=== PATIENT | male | born 1950 | race Caucasian/White ===

== ENCOUNTER 2016-05-20 06:49 | Inpatient (IN) | payer OTHER ==
[~2016-05-20] VITALS: Ht 162.6 cm; Wt 61.7 kg
[~2016-05-20 06:49] MED LIST: ALDACTONE50 M1 PO; LASIX20 M1 PO; PROTONIX20 MG PO
[2016-05-20 06:56] VITALS: BP 99/64
--- NOTE | 2016-05-20 06:56 | NUR ---
PT TAKEN TO BED 3
--- NOTE | 2016-05-20 07:02 | NUR ---
PT DENIES ALLERGIES TO DEPAKOTE AND LITHIUM AT THE MOMENT
--- NOTE | 2016-05-20 07:07 | NUR ---
PT CAME TO ER W/ C/O BLOODY STOOL X 2 WEEKS. EGD AND COLONOSCOPY DONE AT [facility] 05/11/15;DX: HX ESOPHOGEAL VARACIES CIRRHOSIS;PT HAS FIRM DISTENDED ABDOMEN;PT STATES HE HAS ABDOMINAL PAIN AND FEELING NAUSEOUS W/ PAIN SCALE OF 6/10.PT IS AAOX4;NO ACUTE DISTRESS NOTED AT THIS TIME;SAFETY PRECAUTION INSTITUTED;NEEDS ATTENDED;DR HOWARD AT BEDSIDE.
--- NOTE | 2016-05-20 07:09 | NUR ---
Dr. Vazquez evaluating patient at bedside.
[2016-05-20] MEDS ORDERED: NACL 0.9% 1,000 ML IV SCH (07:16)
--- NOTE | 2016-05-20 07:42 | NUR ---
HEAD ORTHOPEDIC TEAM PHYSICIAN AT BEDSIDE AT THIS TIME.
--- NOTE | 2016-05-20 08:01 | NUR ---
PT LYING ON BED COMFORTABLY;NO ACUTE DISTRESS NOTED AT THIS TIME;WILL CONTINUE TO MONITOR PT.
[2016-05-20] MEDS ORDERED: HYDROcodone/APAP 5/325 MG 1 TAB TAB PO PRN (08:35)
[2016-05-20] MEDS ORDERED: ONDANSETRON 4 MG/2 ML VIAL IVP PRN (08:35)
[2016-05-20] MEDS ORDERED: MORPHINE SULFATE 2 MG/ML SYR IVP PRN (08:35)
[2016-05-20] MEDS ORDERED: DOCUSATE SODIUM 100 MG GELCAP PO PRN (08:35)
[2016-05-20] MEDS ORDERED: ACETAMINOPHEN 325 MG TAB PO PRN (08:35)
[2016-05-20] MEDS ORDERED: NACL 0.9% 1,000 ML IV ONE (08:40)
--- NOTE | 2016-05-20 09:09 | NUR ---
CALLED TELE TO GIVE REPORT .TALKED NICOLE TIAN.JAYLAN SAID THEY WILL CALL BACK BECAUSE THEY WERE NOT INFORM THAT THEY ARE GOING TO RECIEVE PT.
--- NOTE | 2016-05-20 09:21 | NUR ---
REPORT GIVEN TO NICOLE TIAN.
--- NOTE | 2016-05-20 09:23 | NUR ---
Patient will be admitted to care of DR JETER . Admited to TELE. Will go to room 107 B. Belongings list completed. Report to NICOLE TIAN.
[2016-05-20 09:50] VITALS: BP 116/64
--- NOTE | 2016-05-20 09:50 | NUR ---
PT ADMITTED FROM ER TO TELE WITH DX: RECAL BLEED/ HYPOTENSION. PT AMBULATORY TO BED. DENIES DISCOMFORT. FRISIAN SPEAKING. NO S/S OF ACUTE DISTRESS. IV SITE PATENT AND INTACT. SKIN INTACT. BELONGINGS AT BEDSIDE. MADE AWARE OF HOSPITAL ENVIRONMENT. SAFETY MEASURES ENSURED. CALL LIGHT LEFT WITHIN REACH. WILL CONTINUE TO MONITOR.
[2016-05-20] MEDS ORDERED: PNEUMOCOCCAL VACCINE 23 MCG/0.5 ML VIAL IMVAC SCH (10:10)
[2016-05-20] MEDS ORDERED: INFLUENZA VIRUS VACCINE QUAD 0.5 ML SYR IMVAC SCH (10:10)
[2016-05-20] MEDS: PANTOPRAZOLE 40 MG TABEC PO SCH (10:41)
--- NOTE | 2016-05-20 10:49 | NUR ---
PT RESTING IN BED. NO S/S OF ACUTE DISTRESS.
[2016-05-20 12:00] VITALS: BP 91/52
--- NOTE | 2016-05-20 14:00 | NUR ---
PATIENT HAD U/S AT BEDSIDE. NO S/S OF ACUTE DISTRESS. ALL NEEDS MET.
[2016-05-20 16:00] VITALS: BP 97/55
--- NOTE | 2016-05-20 17:06 | NUR ---
PT RESTING IN BED. NO S/S OF ACUTE DISTRESS. [facility] RECORDS AND [facility] RECORDS ENDORSED TO DR. MEZA, NO NEW ORDERS. CALL LIGHT WITHIN REACH. WILL CONTINUE TO MONITOR.
--- NOTE | 2016-05-20 19:10 | NUR ---
ENDORSED PLAN OF CARE TO RN SARAH AT PT BEDSIDE. NO S/S OF ACUTE DISTRESS. SCDS ON PATIENT. CALL LIGHT WITHIN REACH.
--- NOTE | 2016-05-20 19:26 | NUR ---
RECEIVED FROM AM RN IN BED AWAKE AND ALERT. NO SOB. DENIES ANY PAIN AT THIS TIME. PT. CALL LIGHT WITH IN REACH. WATCHING TV AT THIS TIME. PT. IS ORIENTED X 4. DX. OF RECTAL BLEED. ENCOURAGED TO CALL FOR ANY HELP HE MAY NEED OR IF IN PAIN. TELEMETRY MONITORING. ORIENTED TO ROOM AND CALL LIGHT. IVF SITE TO LAC #22 INTACT AND NO INFILTRATION NOTED.
[2016-05-20 20:12] VITALS: BP 75/42
[2016-05-20] MEDS: SHARK OIL/PHENYLEPHRINE/COCOA 1 SUPP RC SCH (21:27)
--- NOTE | 2016-05-20 22:00 | NUR ---
PT. STILL AWAKE AND WATCHING TV. ALBANIAN SPEAKING. USES CALL LIGHT FOR HELP. NO COMPLAINTS DONE.
[2016-05-21 00:43] VITALS: BP 90/50
--- NOTE | 2016-05-21 01:26 | NUR ---
KEPT CLEAN AND DRY.SLEEPING AT THIS TIME. NO SOB. CALL LIGHT WITH IN REACH. NO RESTLESSNESS NOTED.
--- NOTE | 2016-05-21 02:21 | NUR ---
SLEEPING. NO RESTLESSNESS. TELEMETRY MONITORING. CALL LIGHT WITH IN REACH.
[2016-05-21 04:00] VITALS: BP 82/46
--- NOTE | 2016-05-21 04:00 | NUR ---
PT. AM HYGIENE RENDERED. WAKES UP EASILY WHEN TOUCHED. NO SOB. DENIES ANY DOLOR AT THIS TIME. NO COMPLAINTS DONE. AWAKE AND ALERT. TELEMETRY MONITORING. NO ECTOPY NOTED 60 HR. AFEBRILE. CALL LIGHT WITH IN REACH. USES URINAL TO URINATE.
--- NOTE | 2016-05-21 05:57 | NUR ---
PAGED PATCHER WOOD WELDER FOR RAKESH WHIPPLE WHICH IS MD BROWN. WILL RELAY BP OF 85/52.
--- NOTE | 2016-05-21 06:23 | NUR ---
MD BROWN CALLED BACK AND STATED THAT WE WILL WAIT FOR AM HEMOGLOBIN RESULT AND LET THE AM RESIDENTS TAKE CARE OF IT. MADE CHARGE NURSE AWARE.PT. ABLE TO VERBLIZE NEEDS IN DIVEHI. NO COMPLAINTS DONE.
--- NOTE | 2016-05-21 07:30 | NUR ---
RECEIVED REPORT FROM COMMERCIAL REPRESENTATIVE NURSE. PT IS AAOX4, DENIES PAIN/DISCOMFORT AT THIS TIME. SKIN IS DRY AND INTACT. IV IS PATENT AND INTACT. PT IS ON ROOM AIR, VITALS STABLE. CALL LIGHT WITHIN REACH. WILL CONTINUE TO MONITOR.
[2016-05-21 08:00] VITALS: BP 93/59
--- NOTE | 2016-05-21 08:19 | NUR ---
PATIENT HAS BEEN SCREENED AND CATEGORIZED MODERATE NUTRITION RISK. PATIENT WILL BE SEEN WITHIN 3-5 DAYS OF ADMISSION. 05/23/16-05/25/[address]
--- NOTE | 2016-05-21 08:37 | NUR ---
PT MIRLANDE MEDS WELL.
[2016-05-21] MEDS: FUROSEMIDE 20 MG TAB PO SCH (09:00)
[2016-05-21] MEDS: SPIRONOLACTONE 50 MG TAB PO SCH (09:00)
[2016-05-21] MEDS: PANTOPRAZOLE 40 MG TABEC PO SCH (09:05)
[2016-05-21] MEDS: FERROUS SULFATE 325 MG TABEC PO SCH (09:05)
--- NOTE | 2016-05-21 09:07 | NUR ---
PT MIRLANDE MEDS WELL. MEDS NOT GIVEN DUE TO DECREASED BP.
--- NOTE | 2016-05-21 10:02 | NUR ---
CM NOTE INITIAL REVIEW FAXED TO [facility] / FAX# [phone], ATTN: PAULA #[phone]
--- NOTE | 2016-05-21 11:33 | NUR ---
VITAL SIGNS REMAIN STABLE. WILL CONTINUE TO MONITOR.
[2016-05-21 12:00] VITALS: BP 97/57
--- NOTE | 2016-05-21 13:06 | NUR ---
ALL NEEDS MET AT THIS TIME.
--- NOTE | 2016-05-21 14:22 | NUR ---
PT C/O RECTAL BLEED, WITH MILD ABD CRAMPING. MD INFORMED. WILL CONTINUE TO MONITOR.
[2016-05-21 16:00] VITALS: BP 91/58
--- NOTE | 2016-05-21 16:54 | NUR ---
VITALS REMAIN STABLE, NO S/SX OF DISTRESS NOTED.
--- NOTE | 2016-05-21 17:06 | NUR ---
ALL NEEDS MET AT THIS TIME.
--- NOTE | 2016-05-21 19:30 | NUR ---
RECEIVED FROM AM RN IN BED AWAKE AND ALERT. ABLE TO VERBALIZE NEEDS WELL. NO SOB. NO COMPLAINTS OF PAIN DONE AT THIS TIME . CALL LIGHT WITH IN REACH. NO SOB. WATCHING TV AT THIS TIME. WELSH SPEAKING.
[2016-05-21 19:41] VITALS: BP 97/60
[2016-05-21] MEDS: SHARK OIL/PHENYLEPHRINE/COCOA 1 SUPP RC SCH (21:00)
--- NOTE | 2016-05-21 22:40 | NUR ---
STILL AWAKE AND WATCHING TV. NO COMPLAINTS DONE. CALL LIGHT WITH IN REACH. TELEMETRY MONITORING. NO SOB.
[2016-05-22 00:51] VITALS: BP 90/60
--- NOTE | 2016-05-22 01:03 | NUR ---
SLEEPING. NO RESTLESSNESS NOTED. TELEMETRY MONITORING. FLACC 0-
[2016-05-22 04:00] VITALS: BP 89/60
--- NOTE | 2016-05-22 04:06 | NUR ---
SLEEPING. NO COMPLAINTS DONE THIS SHIFT. CALL LIGHT WITH IN REACH.
--- NOTE | 2016-05-22 05:51 | NUR ---
AWAKE AT THIS TIME. PT. WATCHING TV. NO COMPLAINTS DONE. GOES BRP BY HIMSELF. INDEPENDENT. NO COMPLAINTS OF RECTAL BLEED WITH ME FROM START OF SHIFT. DENIES PAIN . TELEMETRY MONITORING.
--- NOTE | 2016-05-22 06:39 | NUR ---
UA SPECIMEN TO SENT TO LABORATORY FOR UA DS.
--- NOTE | 2016-05-22 07:24 | NUR ---
ENDORSED TO THE AM RN FOR CONTINUITY OF CARE.
[2016-05-22] MEDS ORDERED: SODIUM POLYSTYRENE 15 GM/60 ML UDBTL PO SCH (07:27)
[2016-05-22] MEDS ORDERED: LACTULOSE 20 GM/30 ML UDC PO SCH (07:27)
--- NOTE | 2016-05-22 07:27 | NUR ---
RECEIVED REPORT FROM NIGHT RN. PT RESTING IN BED. AAOX4. NO S/S OF ACUTE DISTRESS. PT DENIES PAIN. IV SITE PATENT AND INTACT. CALL LIGHT WITHIN REACH. SAFETY MEASURES ENSURED. WILL CONTINUE TO MONITOR.
[2016-05-22 08:12] VITALS: BP 96/55
[2016-05-22] MEDS: PANTOPRAZOLE 40 MG TABEC PO SCH (08:42)
[2016-05-22] MEDS: FERROUS SULFATE 325 MG TABEC PO SCH (08:42)
[2016-05-22] MEDS: FUROSEMIDE 20 MG TAB PO SCH (08:43)
[2016-05-22] MEDS: SPIRONOLACTONE 50 MG TAB PO SCH (08:43)
[2016-05-22] MEDS ORDERED: PHENYLEPHRINE 0.25% 1 EA SUPP RC PRN (10:00)
--- NOTE | 2016-05-22 10:02 | NUR ---
PT RESTING IN BED. NO S/S OF ACUTE DISTRESS. PT TOLERATED AM MEDS WELL. CALL LIGHT WITHIN REACH. SAFETY MEASURES ENSURED. WILL CONTINUE TO MONITOR.
--- NOTE | 2016-05-22 12:02 | NUR ---
CM NOTE CONCURRENT REVIEW SENT TO [facility] FAX# [phone] PH# [phone] PAULA EXT [phone]
--- NOTE | 2016-05-22 12:59 | NUR ---
PT RESTING IN BED. NO S/S OF ACUTE DISTRESS. PT DENIES PAIN. CALL LIGHT WITHIN REACH. WILL CONTINUE TO MONITOR.
[2016-05-22 13:14] VITALS: BP 96/55
[2016-05-22] MEDS ORDERED: LASIX20 MG PO (13:34)
[2016-05-22] MEDS ORDERED: ALDACTONE50 MG PO (13:34)
--- NOTE | 2016-05-22 14:00 | NUR ---
PT RESTING IN BED. NO S/S OF ACUTE DISTRESS. PT DENIES PAIN. CALL LIGHT WITHIN REACH. SAFETY MEASURES ENSURED. WILL CONTINUE TO MONITOR.
[2016-05-22] MEDS ORDERED: HEMORRHOIDAL S RC (15:11)
--- NOTE | 2016-05-22 15:58 | NUR ---
PT CLEARED FOR DISCHARGE. PT DISCHARGE TEACHING PROVIDED. PT VERBALIZED UNDERSTANDING. NO S/S OF ACUTE DISTRESS. PT REMAINS IN STABLE CONDITION.
[2016-05-22 16:00] VITALS: BP 101/65
--- NOTE | 2016-05-22 17:01 | NUR ---
PT'S DAUGHTER HERE. PT'S IV TAKEN OUT. NO S/S OF ACUTE DISTRESS. PT DENIES PAIN. PT REMAINS IN STABLE CONDITION. PT TAKEN OFF UNIT.
== END 2016-05-22 17:01 | disposition home or self-care (01) | DRG 377 ==
LOC: MED 06:49 → MTU 08:47
PROVIDERS: ADMIT Family Medicine; ATTEND Family Medicine
DX: K92.2 Gastrointestinal hemorrhage, unspecified (principal); N17.0 Acute kidney failure with tubular necrosis; K76.7 Hepatorenal syndrome; D62 Acute posthemorrhagic anemia; D61.818 Other pancytopenia; K76.6 Portal hypertension; E44.0 Moderate protein-calorie malnutrition; K64.8 Other hemorrhoids; I85.00 Esophageal varices without bleeding; B19.20 Unspecified viral hepatitis C without hepatic coma; E83.51 Hypocalcemia; E78.5 Hyperlipidemia, unspecified; I95.9 Hypotension, unspecified; D63.8 Anemia in other chronic diseases classified elsewhere; K70.31 Alcoholic cirrhosis of liver with ascites; N18.9 Chronic kidney disease, unspecified; E87.5 Hyperkalemia; Z88.8 Allergy status to other drugs, medicaments and biological substances; Z79.899 Other long term (current) drug therapy; Z68.23 Body mass index [BMI] 23.0-23.9, adult

== ENCOUNTER 2016-08-10 06:35 | Inpatient (IN) | payer MEDICARE, OTHER ==
[~2016-08-10] VITALS: Ht 162.6 cm; Wt 60.8 kg
[~2016-08-10 06:35] MED LIST changes: -ALDACTONE50 M1 PO; +FURO-572 PO; -LASIX20 M1 PO; +PANT20EC PO; -PROTONIX20 MG PO; +SPIR50TA PO; +[UNRECOGNIZED DRUG - OTHER] RC
[2016-08-10 06:55] VITALS: BP 115/56
--- NOTE | 2016-08-10 07:02 | NUR ---
PT TAKEN TO BED 5
[2016-08-10 07:41] LABS: BASOPHILS % (AUTO) 1.3 % (0.0-2.0); EOSINOPHILS # (AUTO) 0.1 K/uL (0-0.4); EOSINOPHILS % (AUTO) 3.7 % (0.0-4.0); HEMATOCRIT 36.4 % (36-52); HEMOGLOBIN 11.9 g/dL (12.0-18.0); LYMPHOCYTES # (AUTO) 0.3 K/uL (2.0-11.5); MEAN CORPUSCULAR HEMOGLOBIN 29 pg (27-31); MEAN CORPUSCULAR HGB CONC 33 g/dL (33-37); MEAN CORPUSCULAR VOLUME 88 fL (80-94); MONOCYTES # (AUTO) 0.3 K/uL (0.8-1.0); MONOCYTES % (AUTO) 8.5 % (1.7-9.3); NEUTROPHILS % (AUTO) 78.5 % (42.2-75.2); RED BLOOD CELL COUNT(AUTO) 4.12 MIL/uL (4.20-6.10); RED CELL DISTRIBUTION WIDTH 17.4 % (11.6-13.7)
[2016-08-10 07:44] LABS: ANION GAP 12.8 (8-16); CALCIUM 8.6 mg/dL (8.5-10.1); CARBON DIOXIDE 27.2 mmol/L (21-32); CREATININE 1.7 mg/dL (0.6-1.3)
[2016-08-10 07:50] LABS: ALBUMIN 3.2 g/dL (3.4-5.0); TOTAL BILIRUBIN 0.7 mg/dL (0.0-1.0); TOTAL PROTEIN, SERUM 7.2 g/dL (6.4-8.2)
[2016-08-10] MEDS ORDERED: NACL 0.9% 1,000 ML IV ONE (07:50)
--- NOTE | 2016-08-10 07:50 | NUR ---
65/M PRESENT TO ER C/O ABD PAIN, SOB, FOR 3 DAYS NOW. PAIN 8/10 ACHING PRESSURE NON-RADIATING. ABD DISTENDED. PT DENIES N/V/D. AAOx4, PERRLA, BREATHING EVEN AND UNLABORED. ERMD NOTIFIED OF PATIENT STATUS.
--- NOTE | 2016-08-10 07:51 | NUR ---
Patient being evaluated by physician at bedside.
[2016-08-10 07:54] LABS: PLATELET COUNT (AUTO) 40 K/uL (140-450); WHITE BLOOD COUNT (AUTO) 3.7 K/uL (4.8-10.8)
[2016-08-10] MEDS ORDERED: ALBUTEROL 0.083% 2.5 MG/3 ML NEBU INH ONE (08:40)
[2016-08-10] MEDS ORDERED: IPRATROPIUM 0.02% 0.5 MG/2.5 ML NEBU INH ONE (08:40)
[2016-08-10 08:45] LABS: APPEARANCE,URINE CLEAR (CLEAR); BILIRUBIN,URINE NEGATIVE (NEGATIVE); BLOOD, URINE NEGATIVE (NEGATIVE); COLOR,URINE YELLOW (YELLOW); LEUKOCYTE ESTERASE ,URINE NEGATIVE (NEGATIVE); NITRITE, URINE NEGATIVE (NEGATIVE); PH,URINE 5.5 (5.0-9.0); PROTEIN,URINE NEGATIVE (NEGATIVE); UGLUCOSE NEGATIVE (NEGATIVE); UROBILINOGEN,URINE 0.2 EU/dL (0.2 - 1)
[2016-08-10 09:01] LABS: INR 1.4 (0.8-1.2); PARTIAL THROMBOPLASTIN TIME 34.5 secs (22-35.6); PROTHROMBIN TIME 12.9 secs (10.8-13.4)
--- NOTE | 2016-08-10 10:34 | NUR ---
PT RESTING. VSS. ERMD AWARE OF PATIENT STATUS.
--- NOTE | 2016-08-10 11:20 | NUR ---
PT TAKEN TO RADIOLOGY VIA GURNEY BY [facility].
--- NOTE | 2016-08-10 11:31 | NUR ---
PT RETURNED FROM CT VIA GURROLFE BY [facility].
--- NOTE | 2016-08-10 12:35 | NUR ---
PT RESTING. VSS. ERMD AWARE OF PATIENT STATUS.
[2016-08-10 12:53] LABS: ANION GAP 13.6 (8-16); CALCIUM 8.4 mg/dL (8.5-10.1); CARBON DIOXIDE 24.6 mmol/L (21-32); CREATININE 1.6 mg/dL (0.6-1.3); POTASSIUM 4.2 mmol/L (3.5-5.1)
--- NOTE | 2016-08-10 13:06 | NUR ---
Patient will be admitted to care of DR. HERRING. Admited to TELE. Will go to room 106B. Belongings list completed. Report to NICOLE JENKINS.
[2016-08-10] MEDS ORDERED: NACL 0.9% 1,000 ML IV SCH (13:37)
[2016-08-10] MEDS ORDERED: ACETAMINOPHEN 325 MG TAB PO PRN (13:40)
[2016-08-10] MEDS ORDERED: HYDROcodone/APAP 7.5/325 MG 1 TAB PO PRN (13:40)
[2016-08-10] MEDS ORDERED: ONDANSETRON 4 MG/2 ML VIAL IVP PRN (13:40)
[2016-08-10 14:30] VITALS: BP 109/68
[2016-08-10 15:14] LABS: CHOL/HDL RATIO 3.9 (1-4.5); MAGNESIUM 1.8 mg/dL (1.8-2.4); PHOSPHORUS 3.6 mg/dL (2.5-4.9)
[2016-08-10 15:16] LABS: LACTIC ACID 1.7 mmol/L (0.4-2.0)
--- NOTE | 2016-08-10 15:20 | NUR ---
PT BROUGHT UP FROM ER AT 1430, PT AAOX4, RESP EVEN UNLABORED ON ROOM AIR IN NAD, AMBULATES TO BED WITHOUT PROBLEM WITH STEADY GAIT, VSS, INITIAL ASSESSMENT DONE AND ADMISSION QUESTIONS DONE VIA TELEPHONE RAIL LAYER #[phone], PT STATES HE CAME INTO ER TODAY BECAUSE HE NEEDS "LIQUID REMOVED FROM ABDOMEN", REPORTS HAVING FLUID REMOVED ABOUT 8 MONTHS AGO, AND TREATMENT FOR ESOPHAGEAL VARICES IN APR 2016, PT DENIES N/VD, DENIES BLOOD IN STOOL OR BLOODY EMESIS, PT WITH SEVERELY DISTENDED ABD, FIRM TO TOUCH, BS CLEAR BILAT, MOVES ALL EXT X4, SKIN INTACT, PLAN OF CARE DISCUSSED, PT DENIES ANY NEEDS OR QUESTIONS AT THIS TIME, PT ORIENTED TO ROOM AND FLOOR, CALL BOLAND WITHIN REACH, BED LOCKED IN LOW POSITION, WILL CONTINUE TO MONITOR.
[2016-08-10] MEDS ORDERED: ALBUTEROL SULFATE/IPRATROPIU 3 ML SOL IH PRN (15:55)
[2016-08-10 16:00] VITALS: BP 121/63
--- NOTE | 2016-08-10 16:00 | NUR ---
PT UP TO BATHROOM, URINE SAMPLE COLLECTED, SENT TO LAB.
[2016-08-10] MEDS ORDERED: PANTOPRAZOLE 40 MG INJ VIAL IVP SCH (16:10)
[2016-08-10] MEDS ORDERED: FUROSEMIDE 40 MG/4 ML VIAL IVP SCH (16:30)
[2016-08-10 16:55] LABS: FREE T4 (FREE THYROXINE) 0.96 ng/dL (0.76-1.46); THYROID STIMULATING HORMONE 1.12 uIU/mL (0.34-3.76)
[2016-08-10 16:57] LABS: AMPHETAMINE, URINE NEG. ng/ml (NEG <=1000); BARBITURATE, URINE NEG. ng/ml (NEG <=200); BENZODIAZEPINE, URINE NEG. ng/mL (NEG <=200); CANNABINOID, URINE NEG. ng/mL (NEG <=50); COCAINE, URINE NEG. ng/mL (NEG <=300); OPIATE, URINE NEG. ng/mL (NEG <=2000); PHENCYCLIDINE SCREEN,URINE NEG. ng/mL (NEG <=25)
--- NOTE | 2016-08-10 17:05 | NUR ---
US AT BEDSIDE
[2016-08-10] MEDS: ALBUTEROL SULFATE/IPRATROPIU 3 ML SOL IH SCH (19:05)
--- NOTE | 2016-08-10 19:18 | NUR ---
REPORT GIVEN TO EDGER OPERATOR, PT IN STABLE CONDITION.
--- NOTE | 2016-08-10 19:18 | NUR ---
RECEIVED REPORT FROM DAY RN FOR CONTINUITY OF CARE. PATIENT IS A&OX4, DISCUSSED PLAN OF CARE WITH PATIENT, VERBALIZED UNDERSTANDING. SHIFT ASSESSMENT DONE, VS TAKEN, STABLE. NO S/S OF RESPIRATORY DISTRESS NOTED ON ROOM AIR. PATIENT STATES DISCOMFORT TO ABDOMEN, ASCITES NOTED. IV TO LT AC PATENT AND INFUSING FLUIDS TO KEEP OPEN. SAFETY PRECAUTIONS ENFORCED, CALL LIGHT WITHIN REACH. WILL CONTINUE TO MONITOR.
[2016-08-10 20:00] VITALS: BP 124/73
[2016-08-10] MEDS: DOCUSATE SODIUM 100 MG GELCAP PO SCH (21:02)
--- NOTE | 2016-08-10 21:02 | NUR ---
DUE MEDICATIONS ADMINISTERED, TOLERATED WELL. CALL LIGHT WITHIN REACH. WILL CONTINUE TO MONITOR.
--- NOTE | 2016-08-10 22:00 | NUR ---
PATIENT AMBULATED TO RESTROOM, HAD A BOWEL MOVEMENT, RETURNED TO BED AND MADE COMFORTABLE. CALL LIGHT WITHIN REACH.
--- NOTE | 2016-08-10 23:51 | NUR ---
VS TAKEN, STABLE. PT NOW SLEEPING AT THIS TIME. CALL LIGHT WITHIN REACH.
[2016-08-11] VITALS: BP 109/56
--- NOTE | 2016-08-11 02:13 | NUR ---
PATIENT SLEEPING AT THIS TIME. NO S/S OF DISTRESS OR DISCOMFORT NOTED. CALL LIGHT IN REACH.
[2016-08-11 04:00] VITALS: BP 111/63
--- NOTE | 2016-08-11 04:18 | NUR ---
VS TAKEN, STABLE. PATIENT RESTING IN BED WATCHING TV. SAFETY MEASURES ENFORCED, EMPTIED URINAL. CALL LIGHT WITHIN REACH.
--- NOTE | 2016-08-11 06:19 | NUR ---
PATIENT IS RESTING AT THIS TIME. NO S/S OF DISTRESS OR DISCOMFORT NOTED. WILL CONTINUE TO MONITOR.
--- NOTE | 2016-08-11 07:14 | NUR ---
ENDORSED PATIENT TO DAY RN FOR CONTINUITY OF CARE, PATIENT IS IN STABLE CONDITION.
--- NOTE | 2016-08-11 07:15 | NUR ---
PT AWAKE AND ALERT, NO SIGNS OF ACUTE DISTRESS. BREATHING EVEN AND UNLABORED BILATERALLY, PT ON ROOM AIR. BOWEL SOUNDS ACTIVE IN ALL 4 QUADRANTS, ABDOMEN ROUND AND ASCITIC, WITH COMPLAINT OF PAIN 6/10 IN STOMACH. SKIN INTACT. AMBULATORY WITH BRP. BOWEL AND BLADDER CONTINENT, USES URINAL. TURKISH PRIMARY LANGUAGE. BED IN LOW POSITION WITH BILATERAL HALF SIDE RAILS UP, CALL LIGHT WITHIN REACH. REORIENTED TO UNIT AND HOSPITAL, PT VERBALIZED UNDERSTANDING.
[2016-08-11] MEDS: ALBUTEROL SULFATE/IPRATROPIU 3 ML SOL IH SCH ×3 (07:18→20:00)
[2016-08-11 07:52] VITALS: BP 103/65
[2016-08-11] MEDS: PANTOPRAZOLE 40 MG INJ VIAL IVP SCH (08:51)
[2016-08-11] MEDS: FUROSEMIDE 40 MG/4 ML VIAL IVP SCH (08:51)
[2016-08-11] MEDS: SPIRONOLACTONE 50 MG TAB PO SCH (08:51)
[2016-08-11] MEDS: DOCUSATE SODIUM 100 MG GELCAP PO SCH ×2 (08:51→20:40)
[2016-08-11] MEDS: PROPRANOLOL 20 MG TAB PO SCH ×2 (08:52→20:40)
--- NOTE | 2016-08-11 10:04 | NUR ---
PATIENT HAS BEEN SCREENED AND CATEGORIZED MODERATE NUTRITION RISK. PATIENT WILL BE SEEN WITHIN 3-5 DAYS OF ADMISSION. 08/13/16-08/15/[address]
[2016-08-11 12:00] VITALS: BP 107/61
--- NOTE | 2016-08-11 12:01 | NUR ---
CM NOTE INITIAL REVIEW SENT TO [facility] FAX# [phone] DEIDRE PH# [phone]
--- NOTE | 2016-08-11 14:43 | NUR ---
RECEIVED NEW LAB ORDERS FROM DR MENCHACA, NOTED AND WILL CARRY OUT.
[2016-08-11 15:25] LABS: BASOPHILS # (AUTO) 0.1 K/uL (0.00-0.22); BASOPHILS % (AUTO) 1.2 % (0.0-2.0); EOSINOPHILS # (AUTO) 0.1 K/uL (0-0.4); EOSINOPHILS % (AUTO) 2.8 % (0.0-4.0); HEMATOCRIT 37.5 % (36-52); HEMOGLOBIN 12.4 g/dL (12.0-18.0); LYMPHOCYTES # (AUTO) 0.3 K/uL (2.0-11.5); LYMPHOCYTES % (AUTO) 7.5 % (20.5-51.1); MEAN CORPUSCULAR HEMOGLOBIN 30 pg (27-31); MEAN CORPUSCULAR HGB CONC 33 g/dL (33-37); MEAN CORPUSCULAR VOLUME 90 fL (80-94); MONOCYTES # (AUTO) 0.3 K/uL (0.8-1.0); MONOCYTES % (AUTO) 7.9 % (1.7-9.3); NEUTROPHILS # (AUTO) 3.6 K/uL (1.8-7.7); NEUTROPHILS % (AUTO) 80.6 % (42.2-75.2); PLATELET COUNT (AUTO) 31 K/uL (140-450); RED BLOOD CELL COUNT(AUTO) 4.17 MIL/uL (4.20-6.10); RED CELL DISTRIBUTION WIDTH 17.4 % (11.6-13.7); WHITE BLOOD COUNT (AUTO) 4.4 K/uL (4.8-10.8)
[2016-08-11 15:37] LABS: ANION GAP 14.7 (8-16); CALCIUM 9.2 mg/dL (8.5-10.1); CARBON DIOXIDE 27.3 mmol/L (21-32)
[2016-08-11 15:38] LABS: MAGNESIUM 1.9 mg/dL (1.8-2.4); PHOSPHORUS 3.9 mg/dL (2.5-4.9)
[2016-08-11 16:00] VITALS: BP 95/57
--- NOTE | 2016-08-11 19:30 | NUR ---
RECEIVED REPORT FROM DAY RN AT BEDSIDE, PATIENT IS AAOX4 RESTING IN BED, ON ROOM AIR, NO SOB OR SIGN OF DISTRESS AT THIS TIME. IV TO LAC PATENT AND INTACT, PATIENT STATED HE HAS LITTLE ABDOMINAL PAIN BUT DOES NOT WANT PAIN MEDS, ABDOMEN IN ROUND AND DISTENDED, SKIN INTACT. DISCUSSED PLAN OF CARE WITH PATIENT, PATIENT VERBALIZED UNDERSTANDING, SAFETY MEASURES CHECKED, CALL LIGHT WITHIN REACH. WILL CONTINUE TO MONITOR.
[2016-08-11 20:00] VITALS: BP 114/67
--- NOTE | 2016-08-11 20:48 | NUR ---
PM MEDS ADMINISTERED, PATIENT TOLERATED WELL, PATIENT RESTING IN BED COMFORTABLE, WILL CONTINUE TO MONITOR.
--- NOTE | 2016-08-11 22:30 | NUR ---
PATIENT SLEEPING, NO SIGN OF DISTRESS AT THIS TIME, CALL LIGHT WITHIN REACH. WILL CONTINUE TO MONITOR.
[2016-08-12] VITALS: BP 93/53
--- NOTE | 2016-08-12 | NUR ---
VITAL SIGNS STABLE, NO SIGN OF DISTRESS, CALL LIGHT WITHIN REACH. WILL CONTINUE TO MONITOR
--- NOTE | 2016-08-12 02:16 | NUR ---
PATIENT SLEEPING, NO SIGN OF DISTRESS, CALL LIGHT WITHIN REACH. WILL CONTINUE TO MONITOR.
[2016-08-12 04:00] VITALS: BP 95/63
--- NOTE | 2016-08-12 04:00 | NUR ---
VITAL SIGNS STABLE, NO SOB OR SIGN OF DISTRESS, CALL LIGHT WITHIN REACH. WILL CONTINUE TO MONITOR
[2016-08-12] MEDS: ALBUTEROL SULFATE/IPRATROPIU 3 ML SOL IH SCH ×2 (07:02→12:21)
[2016-08-12 07:07] LABS: BASOPHILS % (AUTO) 1.1 % (0.0-2.0); EOSINOPHILS # (AUTO) 0.1 K/uL (0-0.4); EOSINOPHILS % (AUTO) 3.9 % (0.0-4.0); HEMATOCRIT 35.8 % (36-52); HEMOGLOBIN 11.8 g/dL (12.0-18.0); LYMPHOCYTES # (AUTO) 0.4 K/uL (2.0-11.5); LYMPHOCYTES % (AUTO) 11.1 % (20.5-51.1); MEAN CORPUSCULAR HEMOGLOBIN 29 pg (27-31); MEAN CORPUSCULAR HGB CONC 33 g/dL (33-37); MEAN CORPUSCULAR VOLUME 88 fL (80-94); MONOCYTES # (AUTO) 0.4 K/uL (0.8-1.0); NEUTROPHILS # (AUTO) 2.9 K/uL (1.8-7.7); NEUTROPHILS % (AUTO) 72.9 % (42.2-75.2); PLATELET COUNT (AUTO) 30 K/uL (140-450); RED BLOOD CELL COUNT(AUTO) 4.05 MIL/uL (4.20-6.10); RED CELL DISTRIBUTION WIDTH 16.9 % (11.6-13.7); WHITE BLOOD COUNT (AUTO) 3.8 K/uL (4.8-10.8)
--- NOTE | 2016-08-12 07:19 | NUR ---
ENDORSED PATIENT TO DAY RN AT BEDSIDE, PATIENT IN STABLE CONDITION
--- NOTE | 2016-08-12 07:20 | NUR ---
RECEIVED REPORT FROM NICOLE MCKINNEY. PT IS RESTING IN BED AT THIS TIME, A/OX4, AMBULATES ON HIS OWN, IV IS ON THE LT AC, PATENT, INTACT, FLUSHING WELL, SKIN IS INTACT, ASCITES NOTED, PT ABDOMEN IS ROUND, LARGE, FIRM, NO S/S OF RESPIRATORY DISTRESS OR DISCOMFORT NOTED, SAFETY/FALL PRECAUTIONS ARE IN PLACE, DISCUSSED PLAN OF CARE WITH PT, PT VERBALIZED UNDERSTANDING, CALL LIGHT WITHIN REACH, WILL CONTINUE TO MONITOR.
[2016-08-12 07:24] LABS: ANION GAP 14.7 (8-16); CALCIUM 8.4 mg/dL (8.5-10.1); CARBON DIOXIDE 25.5 mmol/L (21-32); CREATININE 1.7 mg/dL (0.6-1.3); POTASSIUM 4.2 mmol/L (3.5-5.1)
[2016-08-12 07:30] LABS: PHOSPHORUS 3.9 mg/dL (2.5-4.9)
[2016-08-12 08:00] VITALS: BP 112/63
[2016-08-12] MEDS: FUROSEMIDE 40 MG/4 ML VIAL IVP SCH (08:49)
[2016-08-12] MEDS: PANTOPRAZOLE 40 MG INJ VIAL IVP SCH (08:49)
[2016-08-12] MEDS: DOCUSATE SODIUM 100 MG GELCAP PO SCH (08:49)
[2016-08-12] MEDS: PROPRANOLOL 20 MG TAB PO SCH ×2 (08:50→13:00)
--- NOTE | 2016-08-12 08:50 | NUR ---
DUE MEDICATIONS GIVEN, PT TOLERATED WELL, CALL LIGHT IS WITHIN REACH, WILL CONTINUE TO MONITOR.
[2016-08-12] MEDS: SPIRONOLACTONE 50 MG TAB PO SCH (08:51)
--- NOTE | 2016-08-12 10:45 | NUR ---
PT IS SITTING IN BED, WATCHING TV, FAMILY IS AT BEDSIDE, CALL LIGHT WITHIN REACH.
[2016-08-12 12:00] VITALS: BP 103/65
--- NOTE | 2016-08-12 12:10 | NUR ---
CM SILVA RECEIVED A CALL FROM SHYANNE PERKINS OF [facility] AND SHE SAID SHE IS THE NEW [facility] CM CONTACT. CONCURRENT REVIEW SENT TO [facility] FAX# [phone] MADDIE PH# [phone]
--- NOTE | 2016-08-12 12:45 | NUR ---
PT RESTING IN BED AT THIS TIME, FAMILY IS AT BEDSIDE.
--- NOTE | 2016-08-12 14:15 | NUR ---
DR. MENCHACA AND DR. FIERRO ARE AT PATIENT'S BEDSIDE, PREPARING PATIENT FOR PARACENTESES.
--- NOTE | 2016-08-12 14:45 | NUR ---
PARACENTESES COMPLETED, PT TOLERATED WELL, TOTAL OF 2.2 LITERS OF FLUID REMOVED.
--- NOTE | 2016-08-12 15:40 | NUR ---
ASSISTED PT TO RESTROOM AND BACK INTO BED, NO S/S OF RESPIRATORY DISTRESS OR DISCOMFORT NOTED, CALL LIGHT WITHIN REACH WILL CONTINUE TO MONITOR.
[2016-08-12 16:00] VITALS: BP 114/63
[2016-08-12 16:18] LABS: APPEARANCE,SPUN,BODY FLUID HAZY (CLEAR); APPEARANCE,UNSPUN,BODY FLUID SLIGHTLY CLOUDY (CLEAR); COLOR,BODY FLUID YELLOW (LT YELLOW); SPECIMENTYPE,BODY FLUID PARACENTESIS; TOTAL VOLUME,BODY FLUID 2000 mL
[2016-08-12 16:32] LABS: GLUCOSE,BODY FLUID 124 mg/dL; PROTEIN, BODY FLUID 1.1 g/dL
--- NOTE | 2016-08-12 16:35 | NUR ---
WENT OVER DC INSTRUCTIONS W/ PT AND SON. ANSWERED ALL QUESTIONS. VERBALIZED UNDERSTANDING. SIGNED APPROPRIATE PAPERWORK. REMOVED IV, CANNULA INTACT. NO BLEEDING NOTED. REMOVED ALL ARM BANDS. PT HAS ALL HIS PERSONAL BELONGINGS IN BAGS, READY TO GO. WHEELED HIM OUT WITH HIS SON AT HIS SIDE.
[2016-08-12 19:27] LABS: RBC, BODY FLUID 505 /cu. mm.; WBC, BODY FLUID 36 /cu. mm.
[2016-08-12 19:28] LABS: MONONUCLEAR, BODY FLUID 64 %; POLYNUCLEAR, BODY FLUID 36 %
== END 2016-08-12 16:30 | disposition home or self-care (01) | DRG 432 ==
LOC: MED 06:35 → MTU 13:37
PROVIDERS: ADMIT Family Medicine; ATTEND Family Medicine
PROC: 0W9G3ZZ Drainage of Peritoneal Cavity, Percutaneous Approach (ICD-10-PCS; principal; 2016-08-12)
DX: K74.60 Unspecified cirrhosis of liver (principal); N17.0 Acute kidney failure with tubular necrosis; D61.818 Other pancytopenia; E44.0 Moderate protein-calorie malnutrition; R18.8 Other ascites; K76.6 Portal hypertension; B19.20 Unspecified viral hepatitis C without hepatic coma; F10.21 Alcohol dependence, in remission; Z60.2 Problems related to living alone; Z88.6 Allergy status to analgesic agent; Z88.8 Allergy status to other drugs, medicaments and biological substances; Z79.899 Other long term (current) drug therapy; Z68.23 Body mass index [BMI] 23.0-23.9, adult; Z71.3 Dietary counseling and surveillance; Z82.49 Family history of ischemic heart disease and other diseases of the circulatory system
CPT/HCPCS: 36415; 49083; 71010; 76604; 76705; 80048; 80053; 80305; 81003; 82140; 82150; 82553; 82945; 83036; 83605; 83690; 83735; 83880; 84100; 84157; 84439; 84443; 84484; 85025; 85379; 85610; 85730; 87040; 87081; 89051; 93005; 94640; 96360; 99285; C9113; J1940; J2001; J7030; J7613; J7620; J7644; Q0092; Q9967

== ENCOUNTER 2016-11-25 06:53 | Inpatient (IN) | payer MEDICARE, OTHER ==
[~2016-11-25] VITALS: Ht 170.2 cm; Wt 63.5 kg
[2016-11-25 07:00] VITALS: BP 102/60
[2016-11-25] MEDS ORDERED: BEN50 PO (07:09)
[2016-11-25] MEDS ORDERED: LORA10TA19 PO (07:09)
[2016-11-25] MEDS ORDERED: ONDANSETRON 4 MG/2 ML VIAL IVP ONE (07:25)
[2016-11-25 07:33] LABS: HEMATOCRIT 38.5 % (36-52); HEMOGLOBIN 12.7 g/dL (12.0-18.0); MEAN CORPUSCULAR HEMOGLOBIN 30 pg (27-31); MEAN CORPUSCULAR HGB CONC 33 g/dL (33-37); MEAN CORPUSCULAR VOLUME 92 fL (80-94); PLATELET COUNT (AUTO) 25 K/uL (140-450); RED BLOOD CELL COUNT(AUTO) 4.19 MIL/uL (4.20-6.10); RED CELL DISTRIBUTION WIDTH 15.8 % (11.6-13.7); WHITE BLOOD COUNT (AUTO) 4.2 K/uL (4.8-10.8)
[2016-11-25 07:46] LABS: PROTHROMBIN TIME 13.8 secs (10.8-13.4)
[2016-11-25 07:49] LABS: ALBUMIN 3.4 g/dL (3.4-5.0); ANION GAP 10.4 (8-16); CARBON DIOXIDE 26.2 mmol/L (21-32); POTASSIUM 3.6 mmol/L (3.5-5.1); TOTAL BILIRUBIN 0.9 mg/dL (0.0-1.0)
[2016-11-25 08:15] LABS: EOSINOPHILS % (MANUAL) 2 % (0-4); LYMPHOCYTES % (MANUAL) 6 % (20-46); MONOCYTES % (MANUAL) 3 % (5-12)
[2016-11-25 08:38] LABS: APPEARANCE,URINE CLEAR (CLEAR); BILIRUBIN,URINE NEGATIVE (NEGATIVE); BLOOD, URINE NEGATIVE (NEGATIVE); COLOR,URINE YELLOW (YELLOW); LEUKOCYTE ESTERASE ,URINE NEGATIVE (NEGATIVE); NITRITE, URINE NEGATIVE (NEGATIVE); PH,URINE 5.5 (5.0-9.0); UGLUCOSE NEGATIVE (NEGATIVE)
[2016-11-25] MEDS ORDERED: NACL 0.9% 250 ML IV ONE (09:35)
[2016-11-25] MEDS ORDERED: ACETAMINOPHEN 325 MG TAB PO PRN (09:40)
[2016-11-25] MEDS ORDERED: ONDANSETRON 4 MG/2 ML VIAL IVP PRN (09:40)
[2016-11-25] MEDS ORDERED: HYDROcodone/APAP 7.5/325 MG 1 TAB PO PRN (09:40)
[2016-11-25 10:00] VITALS: BP 97/61
[2016-11-25 10:40] LABS: CHOL/HDL RATIO 3.5 (1-4.5); FREE T4 (FREE THYROXINE) 0.94 ng/dL (0.76-1.46); MAGNESIUM 2.1 mg/dL (1.8-2.4); PHOSPHORUS 3.5 mg/dL (2.5-4.9); THYROID STIMULATING HORMONE 1.13 uIU/mL (0.34-3.74)
[2016-11-25] MEDS: NACL 0.9% 1,000 ML IV SCH (10:43)
[2016-11-25 12:00] VITALS: BP 93/60
[2016-11-25 12:56] LABS: BARBITURATE, URINE NEG. ng/ml (NEG <=200); BENZODIAZEPINE, URINE NEG. ng/mL (NEG <=200); CANNABINOID, URINE NEG. ng/mL (NEG <=50); COCAINE, URINE NEG. ng/mL (NEG <=300); OPIATE, URINE NEG. ng/mL (NEG <=2000); PHENCYCLIDINE SCREEN,URINE NEG. ng/mL (NEG <=25)
[2016-11-25] MEDS ORDERED: INSULIN LISPRO SLIDING SCALE 100 UNITS/ML VIAL SUBQ PRN (13:40)
[2016-11-25] MEDS ORDERED: DEXTROSE 50% 50 ML SYR IVP PRN (13:40)
[2016-11-25] MEDS: PANTOPRAZOLE 80 MG in NACL 0.9% 100 ML IVP SCH (15:24)
[2016-11-25 16:00] VITALS: BP 95/49
[2016-11-25] MEDS: BLOOD GLUCOSE MONITORING 1 DEV DEV FS SCH ×2 (16:23→21:21)
[2016-11-25 20:00] VITALS: BP 90/49
[2016-11-25] MEDS: DOCUSATE SODIUM 100 MG GELCAP PO SCH (21:15)
[2016-11-26] VITALS (7 sets, daily range): BP systolic 90–121; BP diastolic 47–68
[2016-11-26] MEDS: PANTOPRAZOLE 80 MG in NACL 0.9% 100 ML IVP SCH (02:14)
[2016-11-26] MEDS: NACL 0.9% 1,000 ML IV SCH ×3 (05:37→22:00)
[2016-11-26 06:39] LABS: HEMATOCRIT 38.9 % (36-52); HEMOGLOBIN 12.6 g/dL (12.0-18.0); MEAN CORPUSCULAR HEMOGLOBIN 30 pg (27-31); MEAN CORPUSCULAR HGB CONC 33 g/dL (33-37); MEAN CORPUSCULAR VOLUME 91 fL (80-94); RED BLOOD CELL COUNT(AUTO) 4.26 MIL/uL (4.20-6.10); RED CELL DISTRIBUTION WIDTH 15.3 % (11.6-13.7); WHITE BLOOD COUNT (AUTO) 3.5 K/uL (4.8-10.8)
[2016-11-26 06:46] LABS: ANION GAP 10.1 (8-16); CARBON DIOXIDE 27.7 mmol/L (21-32); CREATININE 1.9 mg/dL (0.7-1.3); POTASSIUM 5.8 mmol/L (3.5-5.1)
[2016-11-26 06:54] LABS: PHOSPHORUS 4.4 mg/dL (2.5-4.9)
[2016-11-26] MEDS: BLOOD GLUCOSE MONITORING 1 DEV DEV FS SCH (07:00)
[2016-11-26 07:39] LABS: PLATELET COUNT (AUTO) 30 K/uL (140-450)
[2016-11-26 07:40] LABS: EOSINOPHILS % (MANUAL) 2 % (0-4); LYMPHOCYTES % (MANUAL) 15 % (20-46); MONOCYTES % (MANUAL) 7 % (5-12)
[2016-11-26] MEDS: PANTOPRAZOLE 40 MG TABEC PO SCH (08:53)
[2016-11-26] MEDS: ATORVASTATIN 20 MG TAB PO SCH (08:53)
[2016-11-26] MEDS: DOCUSATE SODIUM 100 MG GELCAP PO SCH ×2 (08:53→20:04)
[2016-11-26] MEDS ORDERED: PANTOPRAZOLE 40 MG INJ VIAL IVP SCH (09:00)
[2016-11-26] MEDS ORDERED: FUROSEMIDE 20 MG/2 ML VIAL IVP SCH (09:59)
[2016-11-26] MEDS ORDERED: fentaNYL 0.05 MG/ML VIAL ONE (10:28)
[2016-11-26] MEDS ORDERED: MIDAZOLAM 2 MG/2 ML VIAL ONE (10:28)
[2016-11-26] MEDS ORDERED: SODIUM POLYSTYRENE 15 GM/60 ML UDBTL PR SCH (12:30)
[2016-11-26] MEDS ORDERED: fentaNYL 0.05 MG/ML VIAL IVP ONE (13:10)
[2016-11-26] MEDS ORDERED: MIDAZOLAM 2 MG/2 ML VIAL IVP ONE (13:10)
[2016-11-27] VITALS: BP 100/58
[2016-11-27] MEDS: NACL 0.9% 1,000 ML IV SCH ×2 (03:18→08:29)
[2016-11-27 04:00] VITALS: BP 97/53
[2016-11-27 06:08] LABS: BASOPHILS % (AUTO) 1.2 % (0.0-2.0); EOSINOPHILS # (AUTO) 0.1 K/uL (0-0.4); EOSINOPHILS % (AUTO) 3.6 % (0.0-4.0); HEMATOCRIT 35.5 % (36-52); HEMOGLOBIN 11.4 g/dL (12.0-18.0); LYMPHOCYTES # (AUTO) 0.3 K/uL (2.0-11.5); LYMPHOCYTES % (AUTO) 9.5 % (20.5-51.1); MEAN CORPUSCULAR HEMOGLOBIN 29 pg (27-31); MEAN CORPUSCULAR HGB CONC 32 g/dL (33-37); MEAN CORPUSCULAR VOLUME 91 fL (80-94); MONOCYTES # (AUTO) 0.4 K/uL (0.8-1.0); MONOCYTES % (AUTO) 12.6 % (1.7-9.3); NEUTROPHILS # (AUTO) 2.7 K/uL (1.8-7.7); NEUTROPHILS % (AUTO) 73.1 % (42.2-75.2); RED BLOOD CELL COUNT(AUTO) 3.91 MIL/uL (4.20-6.10); RED CELL DISTRIBUTION WIDTH 15.2 % (11.6-13.7)
[2016-11-27 06:43] LABS: MAGNESIUM 1.8 mg/dL (1.8-2.4); PHOSPHORUS 3.6 mg/dL (2.5-4.9)
[2016-11-27 07:03] LABS: PLATELET COUNT (AUTO) 40 K/uL (140-450); WHITE BLOOD COUNT (AUTO) 3.5 K/uL (4.8-10.8)
[2016-11-27 07:11] LABS: ANION GAP 10.7 (8-16); CARBON DIOXIDE 24.4 mmol/L (21-32); CREATININE 1.8 mg/dL (0.7-1.3); POTASSIUM 4.1 mmol/L (3.5-5.1)
[2016-11-27 08:00] VITALS: BP 91/57
[2016-11-27] MEDS: DOCUSATE SODIUM 100 MG GELCAP PO SCH (08:18)
[2016-11-27] MEDS: ATORVASTATIN 20 MG TAB PO SCH (08:18)
[2016-11-27] MEDS: PANTOPRAZOLE 40 MG TABEC PO SCH (08:19)
[2016-11-27] MEDS ORDERED: DOCUSATE SODIUM 100 MG GELCAP PO SCH (08:30)
[2016-11-27] MEDS ORDERED: PNEUMOCOCCAL VACCINE 23 MCG/0.5 ML VIAL IMVAC SCH (09:45)
== END 2016-11-27 11:00 | disposition home or self-care (01) | DRG 377 ==
LOC: MED 06:53 → MTU 09:47
PROVIDERS: ADMIT Family Medicine; ATTEND Family Medicine
PROC: 0DJ08ZZ Inspection of Upper Intestinal Tract, Via Natural or Artificial Opening Endoscopic (ICD-10-PCS; principal; 2016-11-26 12:20)
DX: K92.0 Hematemesis (principal); N17.0 Acute kidney failure with tubular necrosis; D61.818 Other pancytopenia; K76.6 Portal hypertension; E87.1 Hypo-osmolality and hyponatremia; E11.22 Type 2 diabetes mellitus with diabetic chronic kidney disease; K70.31 Alcoholic cirrhosis of liver with ascites; E11.65 Type 2 diabetes mellitus with hyperglycemia; I85.00 Esophageal varices without bleeding; E87.5 Hyperkalemia; E78.5 Hyperlipidemia, unspecified; B19.20 Unspecified viral hepatitis C without hepatic coma; N18.9 Chronic kidney disease, unspecified; D73.1 Hypersplenism; K31.89 Other diseases of stomach and duodenum
CPT/HCPCS: 36415; 71010; 76705; 80048; 80053; 80305; 81003; 82140; 82150; 82948; 83036; 83690; 83735; 83880; 84100; 84439; 84443; 84484; 85025; 85610; 85730; 86886; 86900; 86901; 87081; 90732; 93005; 93925; 93970; 96361; 96374; 99285; C9113; J1815; J1940; J2250; J2405; J3010; J7030; Q0092

== ENCOUNTER 2017-08-22 18:54 | Inpatient (IN) | payer MEDICARE, OTHER ==
[~2017-08-22] VITALS: Ht 162.6 cm; Wt 61.2 kg
[~2017-08-22 18:54] MED LIST changes: +BEN50 PO; +LORA10TA19 PO
[2017-08-22 18:58] VITALS: BP 118/70
--- NOTE | 2017-08-22 19:33 | NUR ---
PT C/O ABD PAIN AND "WATER IN STOMACH" X1 WEEK. PER DAUGHTER PT WENT TO [place] 2 WEEKS AGO AND WHEN HE CAME BACK HIS STOMACH BECAME DISTENDED. ABD IS ROUND, SOFT, NON TENDER, ACTIVE BS X4. PER DAUGHTER PT HAS HAD GENERALIZED WEAKNESS, TROUBLE WALKING, AND BL LEG PAIN THE PAST WEEK. PT IS LAYING IN BED, AA&OX4, IN NO APPARENT DISTRESS AT THIS TIME. PMH LIVER CIRROHSIS
[2017-08-22 20:01] LABS: ANION GAP 10.9 (8-16); CARBON DIOXIDE 25.3 mmol/L (21-32); CREATININE 2.5 mg/dL (0.7-1.3); POTASSIUM 4.2 mmol/L (3.5-5.1)
[2017-08-22 20:07] LABS: ALBUMIN 2.9 g/dL (3.4-5.0); TOTAL BILIRUBIN 0.6 mg/dL (0.0-1.0)
[2017-08-22 20:19] LABS: BASOPHILS % (AUTO) 0.6 % (0.0-2.0); EOSINOPHILS # (AUTO) 0.1 K/uL (0-0.4); EOSINOPHILS % (AUTO) 2.1 % (0.0-4.0); HEMATOCRIT 21.1 % (36-52); LYMPHOCYTES # (AUTO) 0.3 K/uL (2.0-11.5); LYMPHOCYTES % (AUTO) 9.8 % (20.5-51.1); MEAN CORPUSCULAR HEMOGLOBIN 24 pg (27-31); MEAN CORPUSCULAR HGB CONC 32 g/dL (33-37); MEAN CORPUSCULAR VOLUME 76.8 fL (80-94); MONOCYTES # (AUTO) 0.3 K/uL (0.8-1.0); MONOCYTES % (AUTO) 10.5 % (1.7-9.3); NEUTROPHILS # (AUTO) 2.4 K/uL (1.8-7.7); PLATELET COUNT (AUTO) 31 K/uL (140-450); RED BLOOD CELL COUNT(AUTO) 2.74 MIL/uL (4.20-6.10); RED CELL DISTRIBUTION WIDTH 18.3 % (11.6-13.7); WHITE BLOOD COUNT (AUTO) 3.1 K/uL (4.8-10.8)
[2017-08-22 20:23] LABS: HEMOGLOBIN 6.7 g/dL (12.0-18.0)
[2017-08-22] MEDS ORDERED: ACETAMINOPHEN 325 MG TAB PO PRN (22:05)
[2017-08-22] MEDS: NACL 0.9% 1,000 ML IV SCH (22:05)
[2017-08-22] MEDS ORDERED: MORPHINE SULFATE 2 MG/ML SYR IVP PRN (22:05)
[2017-08-22] MEDS ORDERED: DOCUSATE SODIUM 100 MG GELCAP PO PRN (22:05)
--- NOTE | 2017-08-22 22:25 | NUR ---
Patient will be admitted to care of dr. pinzon. Admited to tele. Will go to [id number]. Belongings list completed. Report to bonita tilley.
[2017-08-22 22:30] VITALS: BP 96/52
[2017-08-22] MEDS ORDERED: PROMETHAZINE 25 MG/ML VIAL IM SCH (22:30)
--- NOTE | 2017-08-22 22:30 | NUR ---
RECEIVED PT FROM ER TRANSPORT BY [facility]. PT AAOX4. AMBULATED TO BED. PT IV NOTED LFA 22G SALINE LOCK. PT BED LOWERED CALL LIGHT WITHIN REACH. ON ROOM AIR. NO SOB NO S/S OF DISTRESS. WILL CONTINUE TO MONITOR.
[2017-08-22 22:39] LABS: ALBUMIN 2.9 g/dL (3.4-5.0); CHOL/HDL RATIO 3.6 (1-4.5); FREE T4 (FREE THYROXINE) 0.96 ng/dL (0.76-1.46); MAGNESIUM 2.4 mg/dL (1.8-2.4); PHOSPHORUS 3.9 mg/dL (2.5-4.9); THYROID STIMULATING HORMONE 1.33 uIU/mL (0.34-3.74)
[2017-08-22 22:47] LABS: PROTHROMBIN TIME 13.3 secs (10.8-13.4)
[2017-08-23] MEDS ORDERED: diphenhydrAMINE 50 MG CAP PO PRN (00:20)
--- NOTE | 2017-08-23 00:22 | NUR ---
PT WATCHING TV AND RESTING WILL CONTINUE TO MONITOR.
[2017-08-23] MEDS ORDERED: DEXTROSE 50% 50 ML SYR IVP PRN (02:05)
[2017-08-23 04:00] VITALS: BP 98/52
[2017-08-23] MEDS: BLOOD GLUCOSE MONITORING 1 DEV DEV FS SCH ×4 (06:30→20:12)
--- NOTE | 2017-08-23 07:29 | NUR ---
RECEIVED REPORT FROM CHEMICAL LAB TECHNICIAN NURSE AT BEDSIDE. PT IS A/O X4. SKIN INTACT. IV L FA 22GNS RUNNING AT 10ML/HR. PT HAS A DISTENDED ABDOMEN. NO COMPLAINTS OF PAIN. BED IS LOW POSITION. SIDE RAILS UP X2. CALL LIGHT IS IN REACH. UPDATED BOARD. LAB IN ROOM DRAWING BLOOD. WILL CONTINUE TO MONITOR.
[2017-08-23 08:00] VITALS: BP 98/56
[2017-08-23 08:19] LABS: BASOPHILS % (AUTO) 0.4 % (0.0-2.0); EOSINOPHILS # (AUTO) 0.1 K/uL (0-0.4); EOSINOPHILS % (AUTO) 2.5 % (0.0-4.0); HEMATOCRIT 24.6 % (36-52); HEMOGLOBIN 7.7 g/dL (12.0-18.0); LYMPHOCYTES # (AUTO) 0.3 K/uL (2.0-11.5); LYMPHOCYTES % (AUTO) 9.1 % (20.5-51.1); MEAN CORPUSCULAR HEMOGLOBIN 24 pg (27-31); MEAN CORPUSCULAR HGB CONC 31 g/dL (33-37); MEAN CORPUSCULAR VOLUME 78.3 fL (80-94); MONOCYTES # (AUTO) 0.2 K/uL (0.8-1.0); MONOCYTES % (AUTO) 8.3 % (1.7-9.3); NEUTROPHILS # (AUTO) 2.4 K/uL (1.8-7.7); NEUTROPHILS % (AUTO) 79.7 % (42.2-75.2); PLATELET COUNT (AUTO) 33 K/uL (140-450); RED BLOOD CELL COUNT(AUTO) 3.15 MIL/uL (4.20-6.10)
[2017-08-23 08:29] LABS: ANION GAP 9.7 (8-16); CARBON DIOXIDE 24.6 mmol/L (21-32); CREATININE 2.4 mg/dL (0.7-1.3); POTASSIUM 4.3 mmol/L (3.5-5.1)
[2017-08-23] MEDS: LACTULOSE 20 GM/30 ML UDC PO SCH ×2 (08:52→20:04)
[2017-08-23] MEDS: PANTOPRAZOLE 40 MG TABEC PO SCH (08:53)
[2017-08-23] MEDS: SPIRONOLACTONE 50 MG TAB PO SCH (08:53)
[2017-08-23] MEDS: HYDROcodone/APAP 7.5/325 MG 1 TAB PO PRN ×2 (08:58→16:37)
[2017-08-23] MEDS ORDERED: PANTOPRAZOLE SODIUM PO SCH (09:00)
[2017-08-23] MEDS ORDERED: LORATADINE 10 MG TAB PO SCH (09:00)
[2017-08-23] MEDS ORDERED: FUROSEMIDE 20 MG TAB PO SCH (09:00)
[2017-08-23] MEDS ORDERED: FUROSEMIDE 20 MG/2 ML VIAL IVP SCH (09:00)
--- NOTE | 2017-08-23 09:00 | NUR ---
ADMINISTERED MORNING MEDS TO PT. PT TOLERATED WELL. PT C/O OF PAIN, PAIN MEDICATION WAS GIVEN. WILL REEVALUATE IN 1 HR FOR EFFECTIVENESS.
--- NOTE | 2017-08-23 09:40 | NUR ---
PT IS UP AMBULATING THE HALLWAY WITH P/T.
--- NOTE | 2017-08-23 10:54 | NUR ---
PT IS IN BED SLEEPING. NO SIGNS OF DISTRESS. WILL CONTINUE TO MONITOR.
--- NOTE | 2017-08-23 11:30 | NUR ---
PT VS ARE STABLE. BS IS 148, NO COVERAGE NEEDED. PT WILL SOON EAT LUNCH. WILL CONTINUE TO MONITOR.
[2017-08-23 12:00] VITALS: BP 96/55
--- NOTE | 2017-08-23 12:41 | NUR ---
SCIENTIFIC INFORMATICS PROJECT LEADER ASSESSING PT.
--- NOTE | 2017-08-23 14:25 | NUR ---
08/23/17 RD INITIAL ASSESSMENT COMPLETED PLEASE REFER TO NUTRITION ASSESSMENT UNDER CARE ACTIVITY FOR ESTIMATED NUTRITIONAL NEEDS. 1. CONTINUE RENAL, CCHO 60GM, 2000ML FLUID RESTRICTION DIET TOLERATED 2. PROVIDE NUTRITION EDUCATION ON RENAL DIET 3. RD TO FOLLOW-UP 3-5 DAYS, MODERATE RISK MAIRELLE COLIN, RD
[2017-08-23] MEDS: NACL 0.9% 1,000 ML IV SCH ×2 (14:45→22:05)
--- NOTE | 2017-08-23 15:04 | NUR ---
PT RESTING IN BED AND WATCHING TV. NO S/SX OF DISTRESS WILL CONTINUE TO MONITOR.
[2017-08-23 16:00] VITALS: BP 106/52
[2017-08-23] MEDS: SODIUM FERRIC GLUCONATE 125 MG in NACL 0.9% 100 ML IV SCH (16:11)
--- NOTE | 2017-08-23 16:20 | NUR ---
PT VS WITHIN NORMAL LIMITS. BS CHECKED, 137. NO COVERAGE NEEDED. NO SIGNS OF DISTRESS. FAMILY IS AT BEDSIDE. WILL CONTINUE TO MONITOR.
--- NOTE | 2017-08-23 16:56 | NUR ---
PLACED HAT IN PT BATHROOM AND EXPLAINED WE NEED A STOOL SAMPLE. WILL LET ME KNOW ONCE HE GOES.
--- NOTE | 2017-08-23 17:20 | NUR ---
STOOL SAMPLE COLLECTED AND TAKEN TO LAB.
--- NOTE | 2017-08-23 19:10 | NUR ---
ENDORSED PT TO STRAP SETTER NURSE FOR CONTINUITY OF CARE. PT IN STABLE CONDITION.
--- NOTE | 2017-08-23 19:11 | NUR ---
RECEIVED BEDSIDE REPORT FROM DAY SHIFT NURSE SHERI RN, PT STABLE, NO DISTRESS NOTED, IV TO L FA 22G RUNNING NS @ 50ML/HR INFUSING WELL, PT ON ROOM AIR NO SOB, PT STATED HAVING PAIN 09/21 WILL MEDICATE, INITIAL ASSESSMENT DONE, ALL SAFETY PRECAUTION MET, WILL CONTINUE TO MONITOR.
[2017-08-23 20:00] VITALS: BP 109/58
[2017-08-23] MEDS: PHENYLEPHRINE 0.25% 1 EA SUPP RC SCH (20:04)
--- NOTE | 2017-08-23 20:05 | NUR ---
DUE MEDICATION ADMINISTERED, PAIN MEDICATION ALSO ADMINISTERED, PT TOLERATED WELL, NO DISTRESS NOTED, CALL LIGHT WITHIN REACH, WILL CONTINUE TO MONITOR.
[2017-08-23] MEDS: INSULIN LISPRO SLIDING SCALE 100 UNITS/ML VIAL SUBQ PRN (20:14)
[2017-08-23] MEDS ORDERED: COCOA BUTTER RC SCH (21:00)
[2017-08-23] MEDS ORDERED: [UNRECOGNIZED DRUG - OTHER] RC SCH (21:00)
--- NOTE | 2017-08-23 22:10 | NUR ---
CHECKED ON PT, PT SLEEPING, NO DISTRESS NOTED, CALL LIGHT WITHIN REACH, WILL CONTINUE TO MONITOR.
[2017-08-24] VITALS: BP 97/51
--- NOTE | 2017-08-24 00:01 | NUR ---
CHECKED ON PT, PT SLEEPING, EASY TO AROUSE, V/S TAKEN, WNL, PT STATED PAIN IS TOLERABLE, NO DISTRESS NOTED, CALL LIGHT WITHIN REACH, WILL CONTINUE TO MONITOR.
--- NOTE | 2017-08-24 00:10 | NUR ---
CHECKED ON PT, PT SLEEPING, NO DISTRESS NOTED, V/S TAKEN, WNL, PT SLEEPING, CALL LIGHT WITHIN REACH, WILL CONTINUE TO MONITOR.
--- NOTE | 2017-08-24 02:10 | NUR ---
CHECKED ON PT, PT SLEEPING, NO DISTRESS NOTED,CALL LIGHT WITHIN REACH, WILL CONTINUE TO MONITOR.
[2017-08-24 04:00] VITALS: BP 97/55
--- NOTE | 2017-08-24 04:10 | NUR ---
CHECKED ON PT, PT SLEEPING, EASY TO AROUSE, V/S TAKEN, WNL, NO DISTRESS NOTED,CALL LIGHT WITHIN REACH, WILL CONTINUE TO MONITOR.
[2017-08-24] MEDS: BLOOD GLUCOSE MONITORING 1 DEV DEV FS SCH ×4 (06:12→21:19)
[2017-08-24 07:27] LABS: BASOPHILS % (AUTO) 0.2 % (0.0-2.0); EOSINOPHILS # (AUTO) 0.1 K/uL (0-0.4); EOSINOPHILS % (AUTO) 2.4 % (0.0-4.0); HEMATOCRIT 25.9 % (36-52); HEMOGLOBIN 8.1 g/dL (12.0-18.0); LYMPHOCYTES # (AUTO) 0.3 K/uL (2.0-11.5); LYMPHOCYTES % (AUTO) 8.9 % (20.5-51.1); MEAN CORPUSCULAR HEMOGLOBIN 25 pg (27-31); MEAN CORPUSCULAR HGB CONC 31 g/dL (33-37); MEAN CORPUSCULAR VOLUME 78.5 fL (80-94); MONOCYTES # (AUTO) 0.4 K/uL (0.8-1.0); MONOCYTES % (AUTO) 9.5 % (1.7-9.3); PLATELET COUNT (AUTO) 29 K/uL (140-450); RED CELL DISTRIBUTION WIDTH 18.6 % (11.6-13.7); WHITE BLOOD COUNT (AUTO) 3.8 K/uL (4.8-10.8)
--- NOTE | 2017-08-24 07:30 | NUR ---
ENDORSED PT TO DAY SHIFT NURSE HUDSON RN, PT STABLE, NO DISTRESS NOTED, CALL LIGHT WITHIN REACH.
--- NOTE | 2017-08-24 07:30 | NUR ---
RECEIVED ON BED AAOX4. NO SOB NOTED. NO C/O PAIN AT THIS TIME. IV TO LT FOREARM PATENT AND INTACT. CHEST, DIMINISHED AIR ENTRY TO THE BASES. ABDOMEN DISTENDED, SOUNDS PRESENT. NPO MAINTAINED FOR PLANNED EGD BY DR. RIVERA TODAY. INSTRUCTED PT TO CALL FOR ASSISTANCE, CALL LIGHT WITHIN REACH. PT VERBALIZED UNDERSTANDING.
[2017-08-24 07:40] LABS: CARBON DIOXIDE 22.5 mmol/L (21-32); CREATININE 2.1 mg/dL (0.7-1.3); POTASSIUM 4.5 mmol/L (3.5-5.1)
[2017-08-24 07:53] LABS: MAGNESIUM 2.3 mg/dL (1.8-2.4); PHOSPHORUS 3.4 mg/dL (2.5-4.9)
[2017-08-24 08:00] VITALS: BP 109/64
[2017-08-24 08:28] LABS: T4 (THYROXINE) 6.3 ug/dL (4.5-12.0)
--- NOTE | 2017-08-24 08:34 | NUR ---
PATIENT HAS BEEN SCREENED AND CATEGORIZED HIGH NUTRITION RISK. PATIENT WILL BE SEEN WITHIN 1-2 DAYS OF ADMISSION. 08/23/17 08/24/[address]
--- NOTE | 2017-08-24 08:38 | NUR ---
BLOOD TRANSFUSION ORDER CLARIFIED WITH DR. FERNANDEZ, ONLY 1 UNIT OF PLATELET NEEDED PER DR. FERNANDEZ, ALONSO AND NANDO FROM BLOOD BANK NOTIFIED.
[2017-08-24] MEDS: SPIRONOLACTONE 50 MG TAB PO SCH (09:00)
[2017-08-24] MEDS: PANTOPRAZOLE 40 MG TABEC PO SCH (09:00)
[2017-08-24] MEDS: LACTULOSE 20 GM/30 ML UDC PO SCH (09:00)
[2017-08-24 10:07] LABS: TRANSFERRIN 288 mg/dL (200-370)
--- NOTE | 2017-08-24 11:31 | NUR ---
FAXED INITIAL REVIEW TO [facility] [phone] ELTON PERKINS [phone]. SPOKE WITH MADDIE, SHE SAID REVIEWS GO JUST TO HER.
[2017-08-24 12:00] VITALS: BP 104/59
--- NOTE | 2017-08-24 13:30 | NUR ---
1 UNIT PLATELET TRANSFUSION STARTED. WILL OBSERVE FOR ANY BLOOD TRANSFUSION REACTIONS.
--- NOTE | 2017-08-24 14:00 | NUR ---
1 UNIT PLATELET COMPLETED WITH NO BLOOD TRANSFUSION REACTIONS NOTED.
[2017-08-24] MEDS: SODIUM FERRIC GLUCONATE 125 MG in NACL 0.9% 100 ML IV SCH (14:16)
[2017-08-24 15:00] LABS: BASOPHILS % (AUTO) 0.2 % (0.0-2.0); EOSINOPHILS # (AUTO) 0.1 K/uL (0-0.4); EOSINOPHILS % (AUTO) 2.9 % (0.0-4.0); HEMATOCRIT 22.7 % (36-52); LYMPHOCYTES # (AUTO) 0.2 K/uL (2.0-11.5); LYMPHOCYTES % (AUTO) 7.3 % (20.5-51.1); MEAN CORPUSCULAR HEMOGLOBIN 24 pg (27-31); MEAN CORPUSCULAR HGB CONC 31 g/dL (33-37); MEAN CORPUSCULAR VOLUME 78.2 fL (80-94); MONOCYTES # (AUTO) 0.3 K/uL (0.8-1.0); MONOCYTES % (AUTO) 9.8 % (1.7-9.3); NEUTROPHILS # (AUTO) 2.5 K/uL (1.8-7.7); NEUTROPHILS % (AUTO) 79.8 % (42.2-75.2); PLATELET COUNT (AUTO) 40 K/uL (140-450); RED CELL DISTRIBUTION WIDTH 18.6 % (11.6-13.7); WHITE BLOOD COUNT (AUTO) 3.1 K/uL (4.8-10.8)
[2017-08-24 15:07] LABS: FOLIC ACID > 20.00 ng/mL (>3.0)
[2017-08-24] MEDS: OCTREOTIDE ACETATE 1.25 MG in NACL 0.9% 250 ML IV SCH (15:08)
[2017-08-24 16:00] VITALS: BP 101/60
--- NOTE | 2017-08-24 16:15 | NUR ---
PER DR. HOFFMAN, DR. Ketan RIVERA RESCHEDULED EGD FOR TOMORROW.
[2017-08-24 17:08] LABS: BASOPHILS % (AUTO) 0.4 % (0.0-2.0); EOSINOPHILS # (AUTO) 0.1 K/uL (0-0.4); HEMATOCRIT 24.2 % (36-52); HEMOGLOBIN 7.4 g/dL (12.0-18.0); LYMPHOCYTES # (AUTO) 0.3 K/uL (2.0-11.5); LYMPHOCYTES % (AUTO) 8.1 % (20.5-51.1); MEAN CORPUSCULAR HEMOGLOBIN 24 pg (27-31); MEAN CORPUSCULAR HGB CONC 31 g/dL (33-37); MEAN CORPUSCULAR VOLUME 78.9 fL (80-94); MONOCYTES # (AUTO) 0.3 K/uL (0.8-1.0); NEUTROPHILS # (AUTO) 2.5 K/uL (1.8-7.7); NEUTROPHILS % (AUTO) 78.5 % (42.2-75.2); PLATELET COUNT (AUTO) 39 K/uL (140-450); RED BLOOD CELL COUNT(AUTO) 3.06 MIL/uL (4.20-6.10); RED CELL DISTRIBUTION WIDTH 18.8 % (11.6-13.7); WHITE BLOOD COUNT (AUTO) 3.1 K/uL (4.8-10.8)
[2017-08-24 17:16] LABS: ANION GAP 14.1 (8-16); CARBON DIOXIDE 22.4 mmol/L (21-32); CREATININE 1.9 mg/dL (0.7-1.3); POTASSIUM 4.5 mmol/L (3.5-5.1)
[2017-08-24 17:20] LABS: MAGNESIUM 2.1 mg/dL (1.8-2.4); PHOSPHORUS 2.8 mg/dL (2.5-4.9)
--- NOTE | 2017-08-24 17:30 | NUR ---
SPOKE WITH KIA FROM BLOOD BANK REGARDING THE 1 UNIT OF PLATELET ORDERED, KIA STATED THAT BLOOD IS NOT READY YET AND WILL TAKE ANOTHER 2-3 HRS.
[2017-08-24] MEDS: NACL 0.9% 1,000 ML IV SCH ×2 (18:05→22:50)
[2017-08-24 18:20] LABS: FERRITIN 14 ng/mL (30 - 400)
--- NOTE | 2017-08-24 19:02 | NUR ---
PT AWAKE, WATCHING TV. NO SOB NOTED. NO COMPLAINTS MADE. WILL ENDORSE TO NEXT SHIFT NURSE FOR CONTINUITY OF CARE.
--- NOTE | 2017-08-24 19:30 | NUR ---
RECEIVED BEDSIDE REPORT FROM DAY SHIFT NURSE HUDSON RN, PT STABLE, NO DISTRESS NOTED, IV TO L FA 22G RUNNING SANDOSTATIN @10ML/HR, INFUSING WELL, PT ON ROOM AIR NO SOB, PT STATED PAIN 7/10 ON THE ABD AT THIS MOMENT, WILL MEDICATE, INITIAL ASSESSMENT DONE, ALL SAFETY PRECAUTION MET, WILL CONTINUE TO MONITOR.
[2017-08-24 20:00] VITALS: BP 102/60
[2017-08-24] MEDS: PHENYLEPHRINE 0.25% 1 EA SUPP RC SCH (20:14)
[2017-08-24] MEDS: HYDROcodone/APAP 7.5/325 MG 1 TAB PO PRN (20:14)
[2017-08-24] MEDS: INSULIN LISPRO SLIDING SCALE 100 UNITS/ML VIAL SUBQ PRN (21:53)
--- NOTE | 2017-08-24 21:53 | NUR ---
DUE MEDICATION ADMINISTERED , PT TOLERATED WELL, NO DISTRESS NOTED, CALL LIGHT WITHIN REACH, WILL CONTINUE TO MONITOR.
--- NOTE | 2017-08-24 22:15 | NUR ---
PLATELETS INFUSION STARTED, PT TOLERATED WELL, NO DISTRESS NOTED, CALL LIGHT WITHIN REACH, WILL CONTINUE TO MONITOR.
--- NOTE | 2017-08-24 22:40 | NUR ---
PLASMA INFUSION COMPLETED, PT TOLERATED WELL, NO DISTRESS NOTED, CALL LIGHT WITHIN REACH, WILL CONTINUE TO MONITOR.
[2017-08-25] VITALS: BP 105/66
--- NOTE | 2017-08-25 00:10 | NUR ---
CHECKED ON PT, PT SLEEPING, NO DISTRESS NOTED, V/S TAKEN, WNL, PT SLEEPING, CALL LIGHT WITHIN REACH, WILL CONTINUE TO MONITOR.
[2017-08-25 00:54] LABS: BASOPHILS % (AUTO) 0.2 % (0.0-2.0); EOSINOPHILS # (AUTO) 0.1 K/uL (0-0.4); EOSINOPHILS % (AUTO) 2.7 % (0.0-4.0); HEMATOCRIT 23.6 % (36-52); HEMOGLOBIN 7.3 g/dL (12.0-18.0); LYMPHOCYTES # (AUTO) 0.2 K/uL (2.0-11.5); MEAN CORPUSCULAR HEMOGLOBIN 25 pg (27-31); MEAN CORPUSCULAR HGB CONC 31 g/dL (33-37); MEAN CORPUSCULAR VOLUME 78.9 fL (80-94); MONOCYTES # (AUTO) 0.4 K/uL (0.8-1.0); MONOCYTES % (AUTO) 9.6 % (1.7-9.3); NEUTROPHILS # (AUTO) 3.2 K/uL (1.8-7.7); NEUTROPHILS % (AUTO) 81.5 % (42.2-75.2); PLATELET COUNT (AUTO) 49 K/uL (140-450); RED BLOOD CELL COUNT(AUTO) 2.99 MIL/uL (4.20-6.10); RED CELL DISTRIBUTION WIDTH 18.6 % (11.6-13.7)
--- NOTE | 2017-08-25 02:41 | NUR ---
PT SLEEPING, NO DISTRESS NOTED, CALL LIGHT WITHIN REACH, WILL CONTINUE TO MONITOR.
[2017-08-25 04:00] VITALS: BP 89/52
--- NOTE | 2017-08-25 04:30 | NUR ---
PT SLEEPING, NO DISTRESS NOTED, CALL LIGHT WITHIN REACH, WILL CONTINUE TO MONITOR.
[2017-08-25] MEDS: BLOOD GLUCOSE MONITORING 1 DEV DEV FS SCH ×4 (05:59→22:04)
[2017-08-25 07:04] LABS: BASOPHILS % (AUTO) 0.4 % (0.0-2.0); EOSINOPHILS # (AUTO) 0.1 K/uL (0-0.4); EOSINOPHILS % (AUTO) 3.1 % (0.0-4.0); HEMATOCRIT 22.9 % (36-52); HEMOGLOBIN 7.3 g/dL (12.0-18.0); LYMPHOCYTES # (AUTO) 0.3 K/uL (2.0-11.5); MEAN CORPUSCULAR HEMOGLOBIN 25 pg (27-31); MEAN CORPUSCULAR HGB CONC 32 g/dL (33-37); MEAN CORPUSCULAR VOLUME 78.5 fL (80-94); MONOCYTES # (AUTO) 0.4 K/uL (0.8-1.0); MONOCYTES % (AUTO) 10.7 % (1.7-9.3); NEUTROPHILS # (AUTO) 2.6 K/uL (1.8-7.7); NEUTROPHILS % (AUTO) 76.8 % (42.2-75.2); RED BLOOD CELL COUNT(AUTO) 2.92 MIL/uL (4.20-6.10); RED CELL DISTRIBUTION WIDTH 18.8 % (11.6-13.7); WHITE BLOOD COUNT (AUTO) 3.4 K/uL (4.8-10.8)
[2017-08-25 07:07] LABS: PLATELET COUNT (AUTO) 47 K/uL (140-450)
--- NOTE | 2017-08-25 07:30 | NUR ---
ENDORSED PT TO DAY SHIFT NURSE FAUZIA RN, PT IN STABLE CONDITION, NO DISTRESS NOTED, CALL LIGHT WITHIN REACH.
[2017-08-25 08:00] VITALS: BP 90/51
--- NOTE | 2017-08-25 08:00 | NUR ---
RECEIVED REPORT FROM AUDREY RIVERA FOR CONTINUITY OF CARE. PATIENT AWAKE A/O X 4 RWANDAN SPEAKING BUT ABLE TO MAKE NEEDS KNOWN. NO S/S OF RESP DISTRESS NOTED. ABDOMEN DISTENDED AND GENERALIZE WEAKNESS NOTED. IV SITE LT FA G 22 INTACT AND PATENT. PATIENT AWARE OF THE 2 PROCEDURE EGD AND PARACENTESIS , VERBALIZED UNDERSTANDING.KEEP PT NPO. PLAN OF CARE DISCUSSED WITH THE PATIENT ,VITALS STABLE WILL CONTINUE TO MONITOR.
[2017-08-25] MEDS: PANTOPRAZOLE 40 MG TABEC PO SCH (09:00)
[2017-08-25] MEDS: SPIRONOLACTONE 50 MG TAB PO SCH (09:00)
--- NOTE | 2017-08-25 09:30 | NUR ---
HELD ALL PO MEDS BECAUSE OF NPO ORDER PROTONIX IVP GIVEN TOLERATED WELL. MORNING CARE GIVEN.
[2017-08-25 09:48] LABS: PROTHROMBIN TIME 14.1 secs (10.8-13.4)
--- NOTE | 2017-08-25 10:10 | NUR ---
DR NYE RADIOLOGIST WON'T DO THE PARACENTESIS BECAUSE OF LOW PLATELETS 47 DR HOFFMAN (RESIDENT)AWARE.
--- NOTE | 2017-08-25 11:45 | NUR ---
CHECKED BLOOD SUGAR 110 NO COVERAGE NEEDED . IVF INFUSING VITALS STABLE.
[2017-08-25 12:05] VITALS: BP 90/51
--- NOTE | 2017-08-25 12:20 | NUR ---
WAITING FOR PLATELETS FROM LAB AND DR HOFFMAN WILL DO THE PARACENTESIS AT THE BED SIDE
[2017-08-25] MEDS ORDERED: LORazepam 2 MG/ML VIAL IVP PRN (13:20)
--- NOTE | 2017-08-25 14:00 | NUR ---
PATIENT WENT FOR GI LAB FOR EGD AND PARACENTESIS TO BE DONE BY DR Cecelia RIVERA ACCOMPANY BY OR NURSE SONYA.
[2017-08-25] MEDS ORDERED: MIDAZOLAM 2 MG/2 ML VIAL ONE (14:14)
[2017-08-25] MEDS ORDERED: diphenhydrAMINE 50 MG/ML VIAL ONE (14:14)
[2017-08-25] MEDS ORDERED: fentaNYL 0.05 MG/ML VIAL ONE ×2 (14:14)
[2017-08-25] MEDS ORDERED: LIDOCAINE 2% 1000 MG/50 ML VIAL INJ ONE (14:28)
[2017-08-25] MEDS ORDERED: ALBUMIN HUMAN 25% 50 ML IV ONE (14:36)
--- NOTE | 2017-08-25 15:05 | NUR ---
PATIENT BACK FROM GI LAB PARACENTESIS DONE TOTAL OUT PUT 5 BOTTLE . SITE CLEAN AND NO DRAINAGE COVERED WITH BANDAGE. VITALS STABLE
--- NOTE | 2017-08-25 16:00 | NUR ---
BLOOD SUGAR 110 NO COVERAGE NEEDED .DUE MEDS GIVEN VITALS STABLE AT THIS TIME.
[2017-08-25] MEDS: OCTREOTIDE ACETATE 1.25 MG in NACL 0.9% 250 ML IV SCH (16:32)
[2017-08-25] MEDS: SODIUM FERRIC GLUCONATE 125 MG in NACL 0.9% 100 ML IV SCH (16:32)
[2017-08-25 16:53] VITALS: BP 91/49
--- NOTE | 2017-08-25 17:10 | NUR ---
STARTED THE PLATELETS TRANSFUSION TOLERATED WELL VITALS STABLE AT THIS TIME
[2017-08-25 17:27] LABS: SPECIMENTYPE,BODY FLUID ASCITES
[2017-08-25 17:28] LABS: APPEARANCE,SPUN,BODY FLUID CLEAR (CLEAR); APPEARANCE,UNSPUN,BODY FLUID CLEAR (CLEAR); COLOR,BODY FLUID LT YELLOW (LT YELLOW); RBC, BODY FLUID 103 /cu. mm.; TOTAL VOLUME,BODY FLUID 4600 mL; WBC, BODY FLUID 3 /cu. mm.
[2017-08-25 17:29] LABS: GLUCOSE,BODY FLUID 124 mg/dL
[2017-08-25] MEDS: METOCLOPRAMIDE 10 MG/2 ML INJ VIAL IVP SCH (17:41)
--- NOTE | 2017-08-25 19:20 | NUR ---
RECEIVED PT IN STABLE CONDITION FROM AM NURSE. AWAKE, ALERT AND ORIENTED X4. ON TELE MONITOR. WITH NO C/O ANY DISCOMFORT NOR PAIN NOTED. HAS PLATELETS STILL INFUSING WELL ON THE RT FA#[phone]. . ANOTHER IV ACCESS ON THE LT AC#20 .CLEAR AND PATENT ALSO INFUSING SANDOSTATIN DRIP. PLAN OF CARE DISCUSSED AND VERBALIZED UNDERSTANDING. BED ON LOWEST POSITION, CALL LIGHT AND URINAL PLACED WITHIN REACH . FREQUENT ROUNDS NEEDED. WILL CONITNUE TO MONITOR.
--- NOTE | 2017-08-25 19:45 | NUR ---
PLATELETS INFUSION DONE. VITAL SIGNS TAKEN. NO REACTION NOTED.
[2017-08-25 20:00] VITALS: BP 95/55
[2017-08-25] MEDS: MIDODRINE 5 MG TAB PO SCH (22:01)
[2017-08-25] MEDS: PHENYLEPHRINE 0.25% 1 EA SUPP RC SCH (22:02)
[2017-08-25] MEDS: LACTULOSE 20 GM/30 ML UDC PO SCH (22:02)
--- NOTE | 2017-08-25 22:04 | NUR ---
BLOOD SUGAR WAS 155. PT REFUSED TO HAVE INSULIN COVERAGE.
--- NOTE | 2017-08-26 00:15 | NUR ---
PT AWAKE. WITH NO C/O ANY DISCOMFORT NOR PAIN NOTED. VITAL SIGNS STABLE. WILL CONTINUE TO MONITOR.
[2017-08-26] MEDS: METOCLOPRAMIDE 10 MG/2 ML INJ VIAL IVP SCH ×3 (00:19→11:53)
[2017-08-26 00:23] VITALS: BP 96/55
--- NOTE | 2017-08-26 02:20 | NUR ---
MADE ROUNDS. PT SLEEPING. NO S/S OF ANY DISTRESS NOTED. WILL CONTINUE TO MONITOR.
[2017-08-26 03:57] VITALS: BP 91/48
[2017-08-26] MEDS: BLOOD GLUCOSE MONITORING 1 DEV DEV FS SCH ×2 (06:14→11:52)
--- NOTE | 2017-08-26 06:14 | NUR ---
BLOOD SUGAR THIS AM WAS CHECKED RESULT 94. NO INSULIN NEEDED.
[2017-08-26] MEDS: MIDODRINE 5 MG TAB PO SCH (06:21)
[2017-08-26 06:50] LABS: BASOPHILS % (AUTO) 0.6 % (0.0-2.0); EOSINOPHILS # (AUTO) 0.1 K/uL (0-0.4); EOSINOPHILS % (AUTO) 1.8 % (0.0-4.0); HEMATOCRIT 23.1 % (36-52); HEMOGLOBIN 7.5 g/dL (12.0-18.0); LYMPHOCYTES # (AUTO) 0.8 K/uL (2.0-11.5); LYMPHOCYTES % (AUTO) 17.8 % (20.5-51.1); MEAN CORPUSCULAR HEMOGLOBIN 25 pg (27-31); MEAN CORPUSCULAR HGB CONC 32 g/dL (33-37); MEAN CORPUSCULAR VOLUME 77.9 fL (80-94); MONOCYTES # (AUTO) 0.5 K/uL (0.8-1.0); MONOCYTES % (AUTO) 11.8 % (1.7-9.3); NEUTROPHILS # (AUTO) 2.9 K/uL (1.8-7.7); PLATELET COUNT (AUTO) 61 K/uL (140-450); RED BLOOD CELL COUNT(AUTO) 2.96 MIL/uL (4.20-6.10); RED CELL DISTRIBUTION WIDTH 19.1 % (11.6-13.7); WHITE BLOOD COUNT (AUTO) 4.3 K/uL (4.8-10.8)
--- NOTE | 2017-08-26 07:20 | NUR ---
ENDORSED PT IN STABLE CONDITION TO AM NURSE FOR CONTINUITY OF CARE.
--- NOTE | 2017-08-26 07:21 | NUR ---
OBTAINED REPORT FROM PM SHIFT NURSE AT BEDSIDE, PT IS AAOX4, MEXICAN SPEAKING, ABLE TO FOLLOW COMMANDS AND MADE NEEDS KNOWN, NO S/S OF DISTRESS, CLEAR LUNG SOUNDS CARI. ON RA, DENIES CHEST PAIN, SR ON MONITOR, EXTENDED ABDOMEN NOTED, ACTIVE BOWEL SOUNDS, CONTINENT WITH B&B'S, ABLE TO MOVE ALL EXTREMITIES, VSS, DENIES PAIN, IV SITE TO RIGHT FOREARM, 20GA, AND LEFT AC 22GA, PATENT AND SL. EXPLAINED POC TO PT, PT VERBALIZED UNDERSTANDING, PLACED PT IN COMFORT POSITION, SAFETY MEASURE IN PLACE, CALL LIGHT WITHIN REACH, WILL CONTINUE TO MONITOR.
[2017-08-26 07:39] LABS: MAGNESIUM 1.9 mg/dL (1.8-2.4); PHOSPHORUS 3.3 mg/dL (2.5-4.9)
[2017-08-26 07:47] LABS: ANION GAP 13.6 (8-16); CARBON DIOXIDE 20.1 mmol/L (21-32); CREATININE 1.9 mg/dL (0.7-1.3); POTASSIUM 4.7 mmol/L (3.5-5.1)
[2017-08-26 08:00] VITALS: BP 93/55
[2017-08-26] MEDS: PANTOPRAZOLE 40 MG TABEC PO SCH (08:46)
[2017-08-26] MEDS: LACTULOSE 20 GM/30 ML UDC PO SCH (08:47)
[2017-08-26] MEDS: SPIRONOLACTONE 50 MG TAB PO SCH (08:47)
[2017-08-26] MEDS ORDERED: ALBUMIN HUMAN 25% 100 ML IV SCH (09:00)
--- NOTE | 2017-08-26 09:00 | NUR ---
SCHEDULED MEDICATION GIVEN, PT TOLERATED WELL.
[2017-08-26] MEDS ORDERED: ACET-8386 PO (10:30)
[2017-08-26] MEDS ORDERED: LACT10SO11 PO (10:30)
[2017-08-26 10:51] VITALS: BP 93/55
--- NOTE | 2017-08-26 11:02 | NUR ---
FAXED CONCURRENT REVIEW TO [facility] [phone] PHONE MADDIE [phone]
[2017-08-26 12:00] VITALS: BP 91/52
--- NOTE | 2017-08-26 12:15 | NUR ---
DISCHARGE INSTRUCTION AND MEDICATION PRESCRIPTION GIVEN, PT VERBALIZED UNDERSTANDING, ALL BELONGS SIGNED AND ALL DISCHARGE PAPERS SIGNED, IV SITE REMOVED, PT'S V/S STABLE, DENIES ANY PAIN, WALKED OUT WITH CROSS TIE CUTTER TO CAR WITHOUT INCIDENT.
[2017-08-26 12:20] LABS: BILIRUBIN,URINE NEGATIVE (NEGATIVE); BLOOD, URINE NEGATIVE (NEGATIVE); COLOR,URINE YELLOW (YELLOW); LEUKOCYTE ESTERASE ,URINE NEGATIVE (NEGATIVE); NITRITE, URINE NEGATIVE (NEGATIVE); PH,URINE 5.5 (5.0-9.0); UGLUCOSE NEGATIVE (NEGATIVE)
[2017-08-26 12:37] LABS: APPEARANCE,URINE HAZY (CLEAR)
[2017-08-26 12:38] LABS: RBC,URINE NONE SEEN /HPF (0-5); WBC,URINE 0-5 (RARE) /HPF (0-5)
== END 2017-08-26 12:15 | disposition home or self-care (01) | DRG 432 ==
LOC: MED 18:54 → MTU 22:05
PROVIDERS: ADMIT General Practice; ATTEND General Practice
PROC: 30233R1 Transfusion of Nonautologous Platelets into Peripheral Vein, Percutaneous Approach (ICD-10-PCS; 2017-08-22)
PROC: 30233N1 Transfusion of Nonautologous Red Blood Cells into Peripheral Vein, Percutaneous Approach (ICD-10-PCS; 2017-08-22)
PROC: 0W9G30Z Drainage of Peritoneal Cavity with Drainage Device, Percutaneous Approach (ICD-10-PCS; principal; 2017-08-25 14:35)
PROC: 0DJ08ZZ Inspection of Upper Intestinal Tract, Via Natural or Artificial Opening Endoscopic (ICD-10-PCS; 2017-08-25 14:35)
DX: K70.31 Alcoholic cirrhosis of liver with ascites (principal); N17.0 Acute kidney failure with tubular necrosis; N18.6 End stage renal disease; K85.90 Acute pancreatitis without necrosis or infection, unspecified; K76.6 Portal hypertension; E44.0 Moderate protein-calorie malnutrition; D61.818 Other pancytopenia; I85.10 Secondary esophageal varices without bleeding; D64.9 Anemia, unspecified; Z99.2 Dependence on renal dialysis; E83.51 Hypocalcemia; D50.9 Iron deficiency anemia, unspecified; D69.6 Thrombocytopenia, unspecified; Z68.23 Body mass index [BMI] 23.0-23.9, adult; D63.1 Anemia in chronic kidney disease; D63.8 Anemia in other chronic diseases classified elsewhere
CPT/HCPCS: 36415; 49082; 49083; 71045; 76705; 80048; 80053; 81001; 81003; 82040; 82140; 82150; 82272; 82607; 82728; 82746; 82945; 82948; 82977; 83036; 83540; 83690; 83735; 83880; 84100; 84157; 84300; 84436; 84439; 84443; 84479; 85025; 85045; 85610; 85730; 86886; 86900; 86901; 86920; 87070; 87075; 87081; 87086; 87205; 89051; 93005; 93925; 93970; 93976; 99285; J1200; J1815; J1940; J2001; J2250; J2354; J2765; J2916; J3010; J7030; P9016; P9035; P9046; Q0092

== ENCOUNTER 2019-03-30 10:19 | Emergency (ER) | payer MEDICARE, OTHER ==
[~2019-03-30] VITALS: Ht 162.6 cm; Wt 68.9 kg
[~2019-03-30 10:19] MED LIST changes: +ACET-8386 PO; +LACT10SO11 PO; +PHEN1SUP RC; -[UNRECOGNIZED DRUG - OTHER] RC
[2019-03-30 10:28] VITALS: BP 131/76
--- NOTE | 2019-03-30 10:31 | NUR ---
PATIENT AMBULATED WITH STEADY GAIT TO BED 4.
--- NOTE | 2019-03-30 11:14 | NUR ---
68 Y/O C/O ABDOMINAL PAIN. PT ABDOMEN IS EXTENDED, PAIN TO TOUCH LOWER ABDOMEN. PT HAS CIRHOSIS AND HAS HAD ASCITIES WITH DRAINAGE X2 YEARS AGO. PT STATES PAIN WITH ABDOMINAL DISTENTION BEGAN X1 WEEK AGO. BILATERAL LOWER LEG PITTING EDEMA +1. PT DENIES N/V/F. PT POSITIONED FOR COMFORT, BED LOWERED, SIDE RAIL X1 IN PLACE. PT AND DAUGHTER AT BEDSIDE. NKA MEDHX: CIRRHOSIS, HYPOTENSION
--- NOTE | 2019-03-30 11:39 | NUR ---
LAB AT BEDSIDE DRAWING ORDERED LAB WORK.
[2019-03-30 11:55] LABS: BASOPHILS % (AUTO) 0.7 % (0.0-2.0); EOSINOPHILS # (AUTO) 0.1 K/uL (0-0.4); EOSINOPHILS % (AUTO) 2.9 % (0.0-4.0); HEMATOCRIT 31.5 % (36-52); HEMOGLOBIN 10.2 g/dL (12.0-18.0); LYMPHOCYTES # (AUTO) 0.3 K/uL (2.0-11.5); LYMPHOCYTES % (AUTO) 8.1 % (20.5-51.1); MEAN CORPUSCULAR HEMOGLOBIN 30 pg (27-31); MEAN CORPUSCULAR HGB CONC 33 g/dL (33-37); MEAN CORPUSCULAR VOLUME 91.1 fL (80-94); MONOCYTES # (AUTO) 0.4 K/uL (0.8-1.0); MONOCYTES % (AUTO) 11.1 % (1.7-9.3); NEUTROPHILS % (AUTO) 77.2 % (42.2-75.2); PLATELET COUNT (AUTO) 37 K/uL (140-450); RED BLOOD CELL COUNT(AUTO) 3.46 MIL/uL (4.20-6.10); RED CELL DISTRIBUTION WIDTH 17.4 % (11.6-13.7); WHITE BLOOD COUNT (AUTO) 3.8 K/uL (4.8-10.8)
[2019-03-30 12:05] LABS: APPEARANCE,URINE CLEAR (CLEAR); BILIRUBIN,URINE NEGATIVE (NEGATIVE); BLOOD, URINE NEGATIVE (NEGATIVE); COLOR,URINE YELLOW (YELLOW); LEUKOCYTE ESTERASE ,URINE NEGATIVE (NEGATIVE); NITRITE, URINE NEGATIVE (NEGATIVE); PH,URINE 5.5 (5.0-9.0); UGLUCOSE NEGATIVE (NEGATIVE)
[2019-03-30 12:11] LABS: PROTHROMBIN TIME 12.7 secs (10.8-13.4)
[2019-03-30 12:19] LABS: POTASSIUM 4.5 mmol/L (3.5-5.1)
[2019-03-30 12:20] LABS: ANION GAP 15.8 (8-16); CARBON DIOXIDE 23.7 mmol/L (21-32); CREATININE 2.6 mg/dL (0.7-1.3); TOTAL BILIRUBIN 0.9 mg/dL (0.0-1.0)
[2019-03-30 12:21] LABS: ALBUMIN 2.7 g/dL (3.4-5.0)
--- NOTE | 2019-03-30 12:23 | NUR ---
CRITICAL BUN 62, REPORTED TO DR ALANIS
--- NOTE | 2019-03-30 14:53 | NUR ---
CALLED PTS DAUGHTER, ETA IS 20 MIN
--- NOTE | 2019-03-30 14:54 | NUR ---
PT PENDING DISCHARGE AT THIS TIME
--- NOTE | 2019-03-30 15:05 | NUR ---
PT RESTING COMFORTABLY, EYES CLOSED, BREATHING UNLABORED. VS STABLE. WAITING FOR FAMILY TO ARRIVE TO DISCHARGE PATIENT.
[2019-03-30 16:15] VITALS: BP 127/67
--- NOTE | 2019-03-30 16:16 | NUR ---
Patient discharged with v/s stable. Written and verbal after care instructions given and explained. Patient verbalized understanding. Ambulatory with steady gait. All questions addressed prior to discharge. Advised to follow up with PMD.
== END 2019-03-30 16:16 | disposition home or self-care (01) ==
LOC: MED 10:19
DX: K74.60 Unspecified cirrhosis of liver (principal); N19 Unspecified kidney failure; R18.8 Other ascites; I12.9 Hypertensive chronic kidney disease with stage 1 through stage 4 chronic kidney disease, or unspecified chronic kidney disease; N18.9 Chronic kidney disease, unspecified; Z79.899 Other long term (current) drug therapy
CPT/HCPCS: 36415; 80053; 81003; 82150; 83690; 85025; 85610; 99283

== ENCOUNTER 2021-01-09 00:31 | Inpatient (IN) | payer MEDICARE, OTHER ==
[~2021-01-09] VITALS: Ht 160 cm; Wt 58.1 kg
[2021-01-09] VITALS (12 sets, daily range): BP systolic 86–119; BP diastolic 50–65
[~2021-01-09 00:31] MED LIST changes: -ACET-8386 PO; +FURO-570 PO; -FURO-572 PO; +MIDO5TAB16 PO; -PANT20EC PO; +PANT40EC PO; -PHEN1SUP RC; +SODI650T2 PO
--- NOTE | 2021-01-09 00:45 | NUR ---
Wayne rausch in [facility] - 01/09/21 at 0049 by MARY WHEELED TO BED 8
--- NOTE | 2021-01-09 00:49 | NUR ---
WHEELED TO BED 7
[2021-01-09 01:56] LABS: BASOPHILS % (AUTO) 0.4 % (0.0-2.0); EOSINOPHILS # (AUTO) 0.1 K/uL (0-0.4); EOSINOPHILS % (AUTO) 0.7 % (0.0-4.0); HEMATOCRIT 36.7 % (36-52); HEMOGLOBIN 11.9 g/dL (12.0-18.0); LYMPHOCYTES # (AUTO) 0.2 K/uL (2.0-11.5); LYMPHOCYTES % (AUTO) 2.6 % (20.5-51.1); MEAN CORPUSCULAR HEMOGLOBIN 30 pg (27-31); MEAN CORPUSCULAR HGB CONC 32 g/dL (33-37); MEAN CORPUSCULAR VOLUME 91.5 fL (80-94); MONOCYTES # (AUTO) 0.5 K/uL (0.8-1.0); MONOCYTES % (AUTO) 6.2 % (1.7-9.3); NEUTROPHILS # (AUTO) 7.1 K/uL (1.8-7.7); NEUTROPHILS % (AUTO) 90.1 % (42.2-75.2); PLATELET COUNT (AUTO) 87 K/uL (140-450); RED BLOOD CELL COUNT(AUTO) 4.02 MIL/uL (4.20-6.10); RED CELL DISTRIBUTION WIDTH 17.2 % (11.6-13.7); WHITE BLOOD COUNT (AUTO) 7.9 K/uL (4.8-10.8)
--- NOTE | 2021-01-09 02:00 | NUR ---
1.5L of paracent. fluid taken to lab
[2021-01-09 02:14] LABS: PROTHROMBIN TIME 14.1 secs (10.8-13.4)
[2021-01-09 02:17] LABS: APPEARANCE,SPUN,BODY FLUID CLEAR (CLEAR); APPEARANCE,UNSPUN,BODY FLUID CLEAR (CLEAR); COLOR,BODY FLUID LT YELLOW (LT YELLOW); SPECIMENTYPE,BODY FLUID PARACENTESIS; TOTAL VOLUME,BODY FLUID 10 mL
[2021-01-09 02:18] LABS: GLUCOSE,BODY FLUID 133 mg/dL; POLYNUCLEAR, BODY FLUID 90 %; RBC, BODY FLUID 1 /cu. mm.; WBC, BODY FLUID 6800 /cu. mm.
[2021-01-09 02:25] LABS: ALBUMIN 3.4 g/dL (3.4-5.0); ANION GAP 16.6 (8-16); CREATININE 2.9 mg/dL (0.6-1.3); POTASSIUM 4.6 mmol/L (3.5-5.1); TOTAL BILIRUBIN 2.2 mg/dL (0.0-1.0)
[2021-01-09] MEDS ORDERED: ONDANSETRON 4 MG/2 ML VIAL IVP ONE (02:30)
[2021-01-09] MEDS ORDERED: MORPHINE SULFATE 2 MG/ML SYR IVP ONE (02:30)
[2021-01-09] MEDS ORDERED: cefTRIAXone 1,000 MG VIAL ONE (02:35)
--- NOTE | 2021-01-09 03:20 | NUR ---
Wayne rausch in [facility] - 01/09/21 at 0321 by [email or web address] paracentesis remove 2,5 ml
--- NOTE | 2021-01-09 03:21 | NUR ---
paracentesis remove 4.5 L
--- NOTE | 2021-01-09 03:23 | NUR ---
PATIENT FEELING BETTER AFTER PARACENTESIS WE GAVE ALSO CEFTRIAZONE 1 GM AND MORPHINE 2MG
--- NOTE | 2021-01-09 03:29 | NUR ---
PARACENTESIS PUNTURE LEFT SIDE MESOGASTRIO COLOR YELOW SEROS
[2021-01-09] MEDS ORDERED: MIDODRINE 5 MG TAB PO SCH (04:35)
[2021-01-09] MEDS ORDERED: NOREPINEPHRINE 4 MG/4 ML VIAL IV ONE (04:59)
[2021-01-09] MEDS ORDERED: NOREPINEPHRINE 4 MG in DEXTROSE 5% 250 ML IV ONE (05:15)
--- NOTE | 2021-01-09 05:47 | NUR ---
WE START THE PATIENT IN NOREPRINEPHRINE TRIT FROM 1 MCG PATIENT BP IS NOW BETTER //DiCaprio RN
[2021-01-09] MEDS ORDERED: ALBUMIN HUMAN 25% 100 ML IV ONE ×3 (06:05→07:50)
--- NOTE | 2021-01-09 06:15 | NUR ---
DR. JACQUES AT BEDSIDE EVALUATING PT. VERBAL ORDER FOR ICU ADMISSION GIVEN.
[2021-01-09] MEDS ORDERED: guaiFENesin DM 200/20 MG-10 ML 10 ML UDC PO PRN (06:25)
[2021-01-09] MEDS ORDERED: ZOLPIDEM 5 MG TAB PO PRN (06:25)
[2021-01-09] MEDS ORDERED: POTASSIUM CHLORIDE 10 MEQ TABER PO PRN (06:25)
[2021-01-09] MEDS: NACL 0.9% 1,000 ML IV SCH (06:25)
[2021-01-09] MEDS ORDERED: DOCUSATE SODIUM 100 MG GELCAP PO PRN (06:25)
--- NOTE | 2021-01-09 06:33 | NUR ---
I AM GOING IN 4 MCG OF NOREPINEPHRINE
[2021-01-09] MEDS ORDERED: NOREPINEPHRINE 8 MG in DEXTROSE 5% 250 ML IV PRN (06:35)
[2021-01-09] MEDS: MIDODRINE 5 MG TAB PO SCH ×3 (07:00→19:14)
--- NOTE | 2021-01-09 07:25 | NUR ---
Assumed care of pt c/o hypotension s/p paracentesis. Pt had 4.5L removed during paracentesis. Pt on levophed at this time. Positioned for comfort, remains on bedside monitor.
--- NOTE | 2021-01-09 07:27 | NUR ---
Per Dr House continue Levophed 4mg until PICC line placed.
[2021-01-09 08:33] LABS: CHOL/HDL RATIO 2.7 (1-4.5); FREE T4 (FREE THYROXINE) 1.12 ng/dL (0.76-1.46); MAGNESIUM 2.3 mg/dL (1.8-2.4); THYROID STIMULATING HORMONE 1.83 uIU/mL (0.34-3.74)
--- NOTE | 2021-01-09 08:59 | NUR ---
Report given to NICOLE Edmond at this time.
[2021-01-09] MEDS: PANTOPRAZOLE 40 MG TABEC PO SCH (09:00)
--- NOTE | 2021-01-09 09:27 | NUR ---
Patient will be admitted to care of Dr House. Admited to ICU. Will go to room 5. Belongings list completed. Report to NICOLE Edmond.
--- NOTE | 2021-01-09 09:30 | NUR ---
RECEIVED REPORT FROM ER. ADMITTED 70Y/O MALE. ALERT AND ORIENTED X4. DENIES ANY SHORTNESS OF BREATH ON RA. WITH C/O ABD PAIN 08/22, WILL GIVE NORCO. BOWEL AND BLADDER CONTINENT. WITH RAC 22G AND LAC 20G RUNNING NS AT 30CC/HR AN LEVOPHED AT 4MCG/MIN. ABD ROUND AND DISTENDED, WITH HX OF ASCITES, S/P PARACENTESIS 01/09 WITH 4.5L OUT. SKIN INTACT. CALL LIGHT WITHIN REACH. SAFETY MEASURES IN PLACE. WILL CONTINUE WITH POC.
[2021-01-09] MEDS: HYDROcodone/APAP 7.5/325 MG 1 TAB PO PRN ×2 (10:00→21:32)
--- NOTE | 2021-01-09 11:10 | NUR ---
PATIENT HAS BEEN SCREENED AND CATEGORIZED HIGH NUTRITION RISK. PATIENT WILL BE SEEN WITHIN 1-2 DAYS OF ADMISSION. 01/09/21-01/10/21 REVIEW[address] BY AYE MONT[address] RD
--- NOTE | 2021-01-09 11:20 | NUR ---
ASLEEP IN BED, FLACC 0, NO RESPIRATORY DISTRESS
--- NOTE | 2021-01-09 13:39 | NUR ---
DC PLANNIN YRS OLD MALE PATIENT WAS ADMITTED FROM HOME WITH A DX OF HYPOTENSION , PATIENT HAS A HX OF CIRRHOSIS AND RECURRENT ASCITES.PARACENTESIS WAS DONE 4.5L OUT. PATIENT BECAME HYPOTENSIVE 86/45 STARTED ON LEVOPHED ICU STATUS. CXR SHOWED NO ACUTE CHEST FINDINGS. RAPID COVID TEST NEGATIVE. CONSULTED WITH NEPHRO AND PULMO DC PLAN PER PT RESPOND TO THE TREATMENT. CM TO FOLLOW Addendum: 01/09/21 at 1410 by Cecille Escalante RN DC PLANING: LETI REESE SPOKE WITH MADDIE MCKEE PT'S CLINICAL AND FAXED ALL PAPERWORK TO [phone] . SPOKE WITH PT'S DAUGHTER DISCUSSED THE CONCERN OF DC PLAN ERIC STATED NO ONE CAN TAKE CARE OF HIM AT HOME AND REQUESTED TO BE TRANSFERRED TO REHAB CENTER. WILL NOTIFY MD. KIMBLE TO FOLLOW Addendum: 01/13/21 at 1018 by Cecille Escalante RN DC PLANNING: PATIENT HAS AN ORDER FOR SNF. FAXED TO [facility] AND FAXED TO THE CONTRACTED FACILITIES [facility], [facility] AND ALL KIMBLE TO FOLLOW. Addendum: 01/14/21 at 0911 by Cecille Escalante RN DC PLANNING: SPOKE WITH DR MEZA (WOOL CLEANER) DISCUSSED THE NEED FOR OUT PT DIALYSIS PE MD PT WILL NEED [facility] AND TO SET UP TO [facility]. CALLED MARY ANN SPOKE WITH BELEM KIMBLE NOTIFIED HER PT'S NEEDS OUT PATIENT DIALYSIS AND SNF. [facility] ACCEPTING PATIENT. SHYANNE TO FOLLOW Addendum: 01/15/21 at 0950 by Cecille Escalante RN DC PLANNING: CALLED [facility] [phone] SPOKE WITH JOSE LUIS FAXED ALL PAPERWORK TO [phone] , REVIEWED ALL THE PAPER WORK REQUESTING THE COVID TEST AND HEP PANEL. CHECKED WITH NANDO AT LAB STATED HEP PANEL WILL BE READY THIS EVENING OR TOMORROW. ONCE ITS READY PT WILL BE GOING TO [facility] AND THE CHAIR TIME WILL BE WEDNESDAY, WEDNESDAY AND WEDNESDAY AT 1:15 PM. CALLLALIT LEFT A MESSAGE FOR MADDIE AT [facility]. CM TO FOLLOW Addendum: 01/16/21 at 1638 by Cecille Escalante RN DC PLANNING: PATIENT AND FAMILY MEMBER REFUSED DIALYSIS AND AGREED TO GO WITH HOSPICE DR LAMAS SPOKE WITH PT'S DAUGHTER DECIDED TO GO WITH HOSPICE. [facility] SPOKE WITH DAUGHTER STATED TO TALK TO THE OTHER FAMILY MEMBER AND WILL CALL HER BACK. CALLED [facility]ER SPOKE WITH MADDIE NOTIFIED HER THAT PT REFUSED DIALYSIS AND DECIDED TO GO TO [facility] WITH HOSPICE PER MADDIE CANCELED THE DIALYSIS TRANSPORT AND STATED IF HE GOES WITH HOSPICE MEDICARE WILL TAKE OVER.. AWAITING FOR DAUGHTER TO DISCUSS WITH OTHER FAMILY MEMBER AND SIGN THE PAPER WORK. CM TO FOLLOW Addendum: 01/17/21 at 1047 by Cecille Escalante RN DC PLANNING: RECEIVED A CALL FROM PT'S DAUGHTER ERIC STATED SHE SPOKE WITH CARL AT [facility], REQUESTING TO CLARIFY THAT NO COST TO THE FAMILY BY SIGNING THE HOSPICE FORM. I CALLED CARL AND TO CONTACT FAMILY MEMBER TO CLARIFY ALL THE CONCERNS. [facility] WILL CONTACT ERIC ISSA. SHYANNE TO FOLLOW Addendum: 01/17/21 at 1312 by Cecille Escalante RN DC PLANNING: PATIENT AND FAMILY MEMBER AGREED AND SIGNED WITH [facility] GOING TO [facility] ROOM NUMBER [id number] . [facility] WILL ARRANGE TRANSPORT AND WILL CALL PRIMARY NURSE. NOTIFIED KATELYN QUARLES CM TO FOLLOW
--- NOTE | 2021-01-09 13:41 | NUR ---
BROTHER VISITING AT BEDSIDE. NO APPARENT DISTRESS
--- NOTE | 2021-01-09 16:28 | NUR ---
DAUGHTER VISITING AT BEDSIDE. PT RESTING IN BED, NO COMPLAINTS AT THIS TIME
--- NOTE | 2021-01-09 18:33 | NUR ---
PT EATING DINNER, NO C/O PAIN, NO SOB ON ROOM AIR
--- NOTE | 2021-01-09 19:15 | NUR ---
RECEIVED REPORT FROM DAY SHIFT NURSE, ASSUMED CARE. PATIENT ALERT AND ORIENTED X4, LATVIAN SPEAKING. PERRLA. LEFT AC [address] RUNNING NS 30ML/HR, IV SITE DRY AND INTACT. ABDOMINAL DISTENTION NOTED, AND PAIN ELICITED UPON LIGHT PALPATION. PATIENT WITH ABSORBANT PAD FOR URINARY NEEDS, PATIENT STATES HE MIGHT NOT BE ABLE TO USE THE URINAL. PATIENT STATES LAST LOSE BM WAS YESTERDAY 01/08/21 AT 2200. ALL SAFETY MEASURES IN PLACE, BED AT LOWEST POSITION, BED LOCKED. WILL CONTINUE WITH POC.
--- NOTE | 2021-01-09 21:25 | NUR ---
ADMINISTERED NORCO PRN PER ORDERS. PATIENT WITH COMPLAINT OF ABDOMINAL PAIN RATED 6 ON A SCALE OF 0 TO 10. CONFIRMED VERBALLY THAT PATIENT IS NOT ALLERGIC TO ANY MEDICATIONS. WILL RE-ASSESS IN 30 MINUTES. ALL SAFETY MEASURES IN PLACE INCLUDING BED AT LOWEST POSITION AND LOCKED.
[2021-01-10] VITALS (14 sets, daily range): BP systolic 88–122; BP diastolic 51–91
--- NOTE | 2021-01-10 01:00 | NUR ---
PATIENT SLEEPING COMFORTABLY IN BED, DENIED ANY PAIN AT THE MOMENT. NS RUNNING CONTINUOUSLY AT 30 ML/HR. ALL SAFETY MEASURES IN PLACE, BED AT LOWEST POSITION AND LOCKED. WILL CONTINUE WITH POC.
[2021-01-10] MEDS: HYDROcodone/APAP 7.5/325 MG 1 TAB PO PRN ×2 (04:09→17:49)
--- NOTE | 2021-01-10 04:10 | NUR ---
PATIENT IN BED WITH NO SIGNS OF ACUTE DISTRESS. PATIENT WITH COMPLAINT OF ABDOMINAL PAIN 8 ON A SCALE OF 0 TO 10. NORCO GIVEN PER PRN ORDERS. WILL RE-ASSESS IN 30 MINUTES.
[2021-01-10 05:30] LABS: BASOPHILS % (AUTO) 0.2 % (0.0-2.0); EOSINOPHILS # (AUTO) 0.1 K/uL (0-0.4); EOSINOPHILS % (AUTO) 0.9 % (0.0-4.0); HEMOGLOBIN 10.3 g/dL (12.0-18.0); LYMPHOCYTES # (AUTO) 0.4 K/uL (2.0-11.5); LYMPHOCYTES % (AUTO) 4.9 % (20.5-51.1); MEAN CORPUSCULAR HEMOGLOBIN 30 pg (27-31); MEAN CORPUSCULAR HGB CONC 33 g/dL (33-37); MEAN CORPUSCULAR VOLUME 90.6 fL (80-94); MONOCYTES % (AUTO) 13.6 % (1.7-9.3); NEUTROPHILS # (AUTO) 5.8 K/uL (1.8-7.7); NEUTROPHILS % (AUTO) 80.4 % (42.2-75.2); RED BLOOD CELL COUNT(AUTO) 3.42 MIL/uL (4.20-6.10); RED CELL DISTRIBUTION WIDTH 17.3 % (11.6-13.7); WHITE BLOOD COUNT (AUTO) 7.2 K/uL (4.8-10.8)
[2021-01-10 05:34] LABS: ANION GAP 14.1 (8-16); POTASSIUM 5.1 mmol/L (3.5-5.1)
[2021-01-10] MEDS: MIDODRINE 5 MG TAB PO SCH ×3 (06:22→19:10)
[2021-01-10] MEDS: NACL 0.9% 1,000 ML IV SCH (06:23)
[2021-01-10 06:31] LABS: PLATELET COUNT (AUTO) 38 K/uL (140-450)
--- NOTE | 2021-01-10 06:45 | NUR ---
RECEIVED CRITICAL LABS OF BUN 68 AND CREATININE 3.[address] SWETA ANTOINE, SPOKE WITH DR. MICHAEL AT 06[address]. PER [address]. MICHAEL, LABS ARE NOT CRITICAL AT THIS POINT AND SHOULD NOT CALL TO NOTIFY FOR SUCH LEVELS. NO ORDERS GIVEN AT THE MOMENT.
--- NOTE | 2021-01-10 07:20 | NUR ---
REPORT GIVEN TO DAY SHIFT NURSE. ENDORSED CARE.
--- NOTE | 2021-01-10 07:25 | NUR ---
RECEIVED REPORT FROM TRAINING AND DEVELOPMENT MANAGER NURSE. PT IS IN BEDREST AND NO SIGN OF STRESS OF PAIN AT THE MOMENT. LEFT AC 20 G NS AT 30 ML/HR. RIGHT AC 22G SALINE LOCK. PT IS ON ROOM AIR. HEPATIC DIET. SKIN IS INTACT. BED IS AT THE LOWEST SETTING AND CALL LIGHT IS WITHIN REACH. WILL CONTINUE TO MONITOR.
[2021-01-10] MEDS: PANTOPRAZOLE 40 MG TABEC PO SCH (08:39)
--- NOTE | 2021-01-10 08:46 | NUR ---
MEDICATION ADMINISTERED PER MD ORDERS. PT FINISHED 35% OF BREAKFAST. PT DENIES ANY PAIN AT THIS TIME. WILL CONTINUE TO MONITOR.
--- NOTE | 2021-01-10 09:20 | NUR ---
DR. JACQUES AT BEDSIDE. SUGGESTED TO MAINTAIN BP ABOVE 90 AND TO RESTART LEVOPHED.
--- NOTE | 2021-01-10 09:29 | NUR ---
TALKED TO DR SOL OVER THE PHONE AND APPROVED THE INSERTION OF A PICC LINE FOR PT.
--- NOTE | 2021-01-10 09:31 | NUR ---
RECEIVED PHONE CALL FROM PICC RN, STATED THAT HE WILL FORWARD THE ORDER TO [facility]
[2021-01-10] MEDS ORDERED: NOREPINEPHRINE 4 MG in DEXTROSE 5% 250 ML IV PRN (09:40)
[2021-01-10 10:06] LABS: T4 (THYROXINE) 6.4 ug/dL (4.5-12.0)
--- NOTE | 2021-01-10 11:15 | NUR ---
INSERT URINARY CATHETER PER DR. DUVAL ORDERS. Addendum: 01/10/21 at 1124 by Martinez Vazquez RN RN PERFORMED A BLADDER SCAN AND FLUID WAS NOTED. PT HAS A HARD TIME URINATING. DR. UDVAL WAS AT BEDSIDE AND RECOMMENDED A CRUMP.
--- NOTE | 2021-01-10 11:47 | NUR ---
SUCCESSFUL CRUMP INSERTION ON FIRST ATTEMPT. 600 ML OF URINE COLLECTED.
[2021-01-10 13:17] LABS: APPEARANCE,URINE CLEAR (CLEAR); BILIRUBIN,URINE 1+ (NEGATIVE); BLOOD, URINE NEGATIVE (NEGATIVE); COLOR,URINE YELLOW (YELLOW); LEUKOCYTE ESTERASE ,URINE NEGATIVE (NEGATIVE); NITRITE, URINE NEGATIVE (NEGATIVE); UGLUCOSE NEGATIVE (NEGATIVE)
[2021-01-10 13:44] LABS: RBC,URINE 0-5 /HPF (0-5); WBC,URINE 0-5 /HPF (0-5)
[2021-01-10 13:51] LABS: BARBITURATE, URINE NEGATIVE ng/ml (NEG <=200); BENZODIAZEPINE, URINE NEGATIVE ng/mL (NEG <=200); CANNABINOID, URINE NEGATIVE ng/mL (NEG <=50); COCAINE, URINE NEGATIVE ng/mL (NEG <=300); OPIATE, URINE POSITIVE ng/mL (NEG <=2000); PHENCYCLIDINE SCREEN,URINE NEGATIVE ng/mL (NEG <=25)
--- NOTE | 2021-01-10 14:17 | NUR ---
PER PICC LINE NURSE, PICC LINE READY TO USE.
--- NOTE | 2021-01-10 17:49 | NUR ---
PER MD ORDERS PRN NORCO GIVEN. WILL CONTINUE TO MONITOR.
--- NOTE | 2021-01-10 18:00 | NUR ---
DR. SOL AT BEDSIDE AND ASSESSED PT.
--- NOTE | 2021-01-10 19:17 | NUR ---
ENDORSED TO HOUSE SUPERINTENDENT NURSE OF CONTINUITY OF CARE.
--- NOTE | 2021-01-10 19:20 | NUR ---
RECEIVED REPORT FROM DAY SHIFT NURSE, [facility] CARE. PATIENT STABLE IN BED NO APPARENT ACUTE DISTRESS. PATIENT ALERT AND ORIENTED X4. DENIED ANY PAIN. INITIAL TEMPERATURE 98.[address] LINE IN PLACE, DRY AND INTACT, WITH NO PAIN RUNNING NS AT 30 ML/HR. LEFT AC 20 GAUGE PRESENT, AND RIGHT AC 22 GAUGE IV PRESENT. OBSERVED DISTENDED ABDOMEN, PAIN ELICITED UPON LIGHT PALPATION. ACTIVE BOWEL SOUNDS PRESENT. CRUMP CATHETER IN PLACE WITH NO URINE. ALL SAFETY MEASURES IN PLACE INCLUDING BED AT LOWEST POSITION AND LOCKED. WILL CONTINUE WITH POC.
[2021-01-10] MEDS: OCTREOTIDE ACETATE 100 MCG/ML VIAL SUBQ SCH (20:56)
--- NOTE | 2021-01-10 20:57 | NUR ---
ADMINISTERED 2100 MEDICATION SANDOSTATIN SUBCUTANEOUSLY, PATIENT STATED HE FELT NAUSEOUS IMMEDIATELY AFTER ADMINISTRATION, OBSERVED ONE EPISODE OF VOMITING WITH EMESIS. ADMINISTERED ZOFRAN PRN PER ORDERS. PATIENT STARTED TO FEEL BETTER AND STATED NAUSEA SUBSIDED. WILL CONTINUE TO MONITOR AND FOLLOW POC.
[2021-01-10] MEDS: ONDANSETRON 4 MG/2 ML VIAL IM/IVP PRN (21:08)
[2021-01-11] VITALS: BP 86/55
--- NOTE | 2021-01-11 03:30 | NUR ---
PATIENT SLEEPING COMFORTABLY IN BED. DENIED ANY PAIN AT THE MOMENT. PATIENT ALSO DENIED ANY PAIN. ALL SAFETY MEASURES IN PLACE. WILL CONTINUE WITH POC.
--- NOTE | 2021-01-11 03:30 | NUR ---
PATIENT DENIED ANY NAUSEA AT THE MOMENT. WILL CONTINUE TO MONITOR.
[2021-01-11 04:00] VITALS: BP 82/57
--- NOTE | 2021-01-11 04:25 | NUR ---
ADMINISTERED 0500 MEDICATION AND ADMINISTERED ZOFRAN DUE TO PREVIOUS NAUSEA SIDE EFFECT. PATIENT DENIED ANY PAIN AT THE MOMENT. WILL CONTINUE TO MONITOR AND FOLLOW POC.
[2021-01-11] MEDS: OCTREOTIDE ACETATE 100 MCG/ML VIAL SUBQ SCH ×3 (04:27→21:46)
[2021-01-11] MEDS: ONDANSETRON 4 MG/2 ML VIAL IM/IVP PRN ×2 (04:28→19:51)
--- NOTE | 2021-01-11 06:00 | NUR ---
LATEST V/S BP 101/66 HR 100 TEMP. 99F/OREM
[2021-01-11 06:30] LABS: EOSINOPHILS # (AUTO) 0.1 K/uL (0-0.4); EOSINOPHILS % (AUTO) 0.4 % (0.0-4.0); HEMATOCRIT 36.4 % (36-52); HEMOGLOBIN 11.8 g/dL (12.0-18.0); LYMPHOCYTES # (AUTO) 0.5 K/uL (2.0-11.5); LYMPHOCYTES % (AUTO) 3.4 % (20.5-51.1); MEAN CORPUSCULAR HEMOGLOBIN 29 pg (27-31); MEAN CORPUSCULAR HGB CONC 32 g/dL (33-37); MEAN CORPUSCULAR VOLUME 90.1 fL (80-94); MONOCYTES # (AUTO) 1.1 K/uL (0.8-1.0); MONOCYTES % (AUTO) 7.2 % (1.7-9.3); NEUTROPHILS # (AUTO) 13.5 K/uL (1.8-7.7); PLATELET COUNT (AUTO) 61 K/uL (140-450); RED BLOOD CELL COUNT(AUTO) 4.04 MIL/uL (4.20-6.10); WHITE BLOOD COUNT (AUTO) 15.2 K/uL (4.8-10.8)
--- NOTE | 2021-01-11 06:30 | NUR ---
TRANSFERRED TO TELE UNIT ROOM 105A IN FAIR CONDITION.
[2021-01-11 07:02] LABS: ANION GAP 16.2 (8-16); CARBON DIOXIDE 20.1 mmol/L (21-32); POTASSIUM 5.3 mmol/L (3.5-5.1)
--- NOTE | 2021-01-11 07:15 | NUR ---
RECEIVED REPORT FROM STEEL PAN FORM PLACING SUPERVISOR NURSE IN ICU FOR CONTINUITY OF CARE. PT IS AWAKE AND ALERT. VIETNAMESE SPEAKING. BREATHING IS UNLABORED. ABDOMEN DISTENTION NOTED. CRUMP CATH IN PLACE. IV IS IN THE LEFT AC 20 GAUGE SALINE LOCKED. PICC LINE IN THE RIGHT UA RUNNING FLUIDS ORDERED. SKIN IS WARM AND DRY. PLAN OF CARE DISCUSSED. PT IS STABLE.
[2021-01-11 08:00] VITALS: BP 116/48
[2021-01-11] MEDS: NACL 0.9% 1,000 ML IV SCH (08:01)
[2021-01-11] MEDS: PANTOPRAZOLE 40 MG TABEC PO SCH (08:23)
[2021-01-11] MEDS: HYDROcodone/APAP 7.5/325 MG 1 TAB PO PRN ×2 (08:32→13:50)
--- NOTE | 2021-01-11 08:32 | NUR ---
PT STATES HE HAS PAIN IN HIS ABDOMEN AT A SCALE OF 6/10. ABD IS DISTENDED. PT WAS GIVEN NORCO FOR PAIN. BP WAS 116/48 PRIOR TO ADMINISTRATION OF MEDICATION.
--- NOTE | 2021-01-11 10:30 | NUR ---
ROUNDED ON PT. HE IS SLEEPING IN SEMI FOWLERS POSITION. BREATHING IS UNLABORED ON RA. NO RESPIRATORY DISTRESS NOTED. NO PAIN NOTED. PT IS STABLE.
[2021-01-11 12:00] VITALS: BP 111/40
--- NOTE | 2021-01-11 12:00 | NUR ---
FAMILY AT BEDSIDE. PT IS SPEAKING APPROPRIATELY. AWAKE AND ALERT. DENIES PAIN IN THE ABDOMEN AT THIS TIME. PT IS STABLE.
[2021-01-11] MEDS: MIDODRINE 5 MG TAB PO SCH ×2 (13:50→19:03)
--- NOTE | 2021-01-11 13:50 | NUR ---
PT STATES HE HAS PAIN AT A SCALE OF 6/10 IN HIS ABDOMEN. PT WAS GIVEN NORCO FOR PAIN. BP WAS STABLE PRIOR TO ADMINISTRATION OF MEDICATION. WILL CONTINUE TO MONITOR.
--- NOTE | 2021-01-11 15:30 | NUR ---
PT IS AWAKE AND DENIES PAIN. BREATHING IS UNLABORED. PT WAS GIVEN WATER AND A SNACK REQUESTED. PT IS STABLE.
[2021-01-11 16:00] VITALS: BP 92/48
--- NOTE | 2021-01-11 17:30 | NUR ---
NO DISTRESS NOTED. PT SLEEPING IN SEMI FOWLERS POSITION. NO PAIN NOTED. BED IS IN THE LOWEST POSITION AND CALL LIGHT WITHIN REACH.
--- NOTE | 2021-01-11 19:50 | NUR ---
ENDORSED PT TO MULTIPLE KNIFE EDGE TRIMMER OPERATOR NURSE FOR CONTINUITY OF CARE. PT IS STABLE. PLAN OF CARE DISCUSSED.
--- NOTE | 2021-01-11 19:51 | NUR ---
RECEIVED REPORT FROM AM NURSE. PATIENT IS AWAKE, ALERT. VERBALLY RESPONSIVE. ABLE TO MAKE NEEDS KNOWN. PT WITH BIG ROUND BELLY. NO SOB NOTED. ALL SAFETY PRECAUTIONS ARE IN PLACE. IVF NS RUNNING AT 30 ML/HR. NO COMPLAINTS OF PAIN AT THIS TIME. CALL LIGHT WITHIN REACH.
--- NOTE | 2021-01-11 19:51 | NUR ---
PT HAD AN EPISODE OF EMESIS. PT WAS GIVEN ZOFRAN FOR NAUSEA. WILL CONTINUE TO MONITOR.
[2021-01-11 20:00] VITALS: BP 88/54
--- NOTE | 2021-01-11 22:00 | NUR ---
ALL NEEDS WELL ATTENDED. CALL LIGHT WITHIN REACH.
[2021-01-12] VITALS: BP 86/51
--- NOTE | 2021-01-12 02:00 | NUR ---
ROUNDED PATIENT, PT IS SLEEPING. BREATHING REGULAR UNLABORED.
[2021-01-12 04:00] VITALS: BP 88/50
[2021-01-12] MEDS: OCTREOTIDE ACETATE 100 MCG/ML VIAL SUBQ SCH ×3 (05:18→20:25)
[2021-01-12] MEDS: MIDODRINE 5 MG TAB PO SCH ×3 (06:23→19:35)
[2021-01-12] MEDS: NACL 0.9% 1,000 ML IV SCH (06:57)
[2021-01-12 07:13] LABS: ANION GAP 18.8 (8-16)
[2021-01-12 07:18] LABS: BASOPHILS % (AUTO) 0.1 % (0.0-2.0); EOSINOPHILS # (AUTO) 0.2 K/uL (0-0.4); EOSINOPHILS % (AUTO) 1.1 % (0.0-4.0); HEMATOCRIT 33.4 % (36-52); HEMOGLOBIN 10.9 g/dL (12.0-18.0); LYMPHOCYTES # (AUTO) 0.3 K/uL (2.0-11.5); LYMPHOCYTES % (AUTO) 2.1 % (20.5-51.1); MEAN CORPUSCULAR HEMOGLOBIN 29 pg (27-31); MEAN CORPUSCULAR HGB CONC 33 g/dL (33-37); MEAN CORPUSCULAR VOLUME 89.1 fL (80-94); MONOCYTES # (AUTO) 1.7 K/uL (0.8-1.0); MONOCYTES % (AUTO) 11.2 % (1.7-9.3); NEUTROPHILS # (AUTO) 12.8 K/uL (1.8-7.7); NEUTROPHILS % (AUTO) 85.5 % (42.2-75.2); PLATELET COUNT (AUTO) 68 K/uL (140-450); RED BLOOD CELL COUNT(AUTO) 3.75 MIL/uL (4.20-6.10); RED CELL DISTRIBUTION WIDTH 16.9 % (11.6-13.7)
--- NOTE | 2021-01-12 07:25 | NUR ---
ENDORSED TO AM RN FOR CONTINUITY OF CARE. PATIENT IS IN STABLE CONDITION.
[2021-01-12 07:58] LABS: CREATININE 4.3 mg/dL (0.6-1.3)
[2021-01-12 07:59] LABS: POTASSIUM 5.8 mmol/L (3.5-5.1)
[2021-01-12 08:00] VITALS: BP 120/73
--- NOTE | 2021-01-12 08:00 | NUR ---
RECEIVED REPORT FROM CHARGE OUT CLERK AT BEDSIDE FOR CONTINUITY OF CARE. PATIENT ALERT AWAKE ORIENTED X4, NOT IN ANY DISTRESS NOTED. WITH KAYLYN PICC LINE IV INFUSING @ 30 ML/HR. ON MONITOR SHOWS ST. WITH CRUMP CATHETER DRAINING TO YELLOWISH CLEAR OUTPUT. ABDOMEN DISTENDED. NO SOB NOTED. BED IN LOW POSITION. NEEDS ATTENDED. CALL LIGHT WITHIN REACH. WILL CONTINUE TO MONITOR.
--- NOTE | 2021-01-12 08:03 | NUR ---
LAB CALLED FOR CRITICAL RESULTS, PAGED DR. BRYAN.
[2021-01-12] MEDS: PANTOPRAZOLE 40 MG TABEC PO SCH (08:20)
--- NOTE | 2021-01-12 08:40 | NUR ---
DR. BRYAN CALLED AND MADE AWARE. HE WILL SEE PATIENT TODAY.
[2021-01-12 12:00] VITALS: BP 114/51
--- NOTE | 2021-01-12 12:00 | NUR ---
PATIENT RESTING IN BED, NO SOB, NOT IN DISTRESS NOTED.
[2021-01-12] MEDS ORDERED: ALBUMIN HUMAN 25% 100 ML IV SCH (15:00)
[2021-01-12] MEDS: FUROSEMIDE 100 MG in DEXTROSE 5% 90 ML IV SCH (15:12)
--- NOTE | 2021-01-12 15:20 | NUR ---
LASIX DRIP AND ALBUMIN GIVEN AND INFUSING WELL. DENIES PAIN. WILL CONTINUE TO MONITOR.
[2021-01-12 16:00] VITALS: BP 91/54
--- NOTE | 2021-01-12 18:51 | NUR ---
RESTING IN BED. WILL CONTINUE TO MONITOR.
--- NOTE | 2021-01-12 19:39 | NUR ---
REPORT GIVEN TO WOOL CLASSER AT BEDSIDE FOR CONTINUITY OF CARE. PATIENT IN STABLE CONDITION.
[2021-01-12 20:00] VITALS: BP 98/53
--- NOTE | 2021-01-12 20:29 | NUR ---
RECEIVED REPORT FROM AVERY RIVERA FOR CONTINUITY OF CARE. PT SITTING UP AAOX4. NO APPARENT S/S OF ACUTE DISTRESS. BREATHING EVEN AND UNLABORED ON RA WITH O2 SAT OF 97%. NO C/O CP, SOB OR PAIN. R UA DL PICC INTACT/PATENT WITH LASIX DRIP@10ML/HR. CRUMP CATH INTACT/PATENT WITH YELLOW URINE DRAINING TO GRAVITY. POC AND WHITE COMMUNICATION BOARD UPDATED. BED IN LOW/LOCKED POSITION. CALL LIGHT WITHIN REACH. PT ENCOURAGED TO CALL FOR ANY NEEDS/ASSISTANCE. WILL CONTINUE TO MONITOR.
[2021-01-13] VITALS: BP 111/53
[2021-01-13] MEDS: FUROSEMIDE 100 MG in DEXTROSE 5% 90 ML IV SCH ×3 (01:04→09:54)
[2021-01-13 04:00] VITALS: BP 92/45
[2021-01-13] MEDS: OCTREOTIDE ACETATE 100 MCG/ML VIAL SUBQ SCH ×3 (05:36→21:46)
[2021-01-13] MEDS: MIDODRINE 5 MG TAB PO SCH ×3 (06:06→18:36)
[2021-01-13 06:27] LABS: BASOPHILS % (AUTO) 0.1 % (0.0-2.0); EOSINOPHILS # (AUTO) 0.3 K/uL (0-0.4); EOSINOPHILS % (AUTO) 1.8 % (0.0-4.0); HEMATOCRIT 32.5 % (36-52); HEMOGLOBIN 10.7 g/dL (12.0-18.0); LYMPHOCYTES # (AUTO) 0.4 K/uL (2.0-11.5); LYMPHOCYTES % (AUTO) 2.4 % (20.5-51.1); MEAN CORPUSCULAR HEMOGLOBIN 29 pg (27-31); MEAN CORPUSCULAR HGB CONC 33 g/dL (33-37); MONOCYTES # (AUTO) 1.9 K/uL (0.8-1.0); MONOCYTES % (AUTO) 12.2 % (1.7-9.3); NEUTROPHILS # (AUTO) 13.1 K/uL (1.8-7.7); NEUTROPHILS % (AUTO) 83.5 % (42.2-75.2); PLATELET COUNT (AUTO) 53 K/uL (140-450); RED CELL DISTRIBUTION WIDTH 17.1 % (11.6-13.7); WHITE BLOOD COUNT (AUTO) 15.7 K/uL (4.8-10.8)
[2021-01-13 06:57] LABS: ANION GAP 19.5 (8-16); CARBON DIOXIDE 15.6 mmol/L (21-32)
--- NOTE | 2021-01-13 07:13 | NUR ---
RECEIVED REPORT FROM RN OBGYN NURSE. BREATHING SYMMETRICAL. NO S/S OF DISTRESS. IV RUNNING PER MD ORDERS. CALL LIGHT IN REACH. ALL SAFETY MEASURES ARE IN PLACE.
--- NOTE | 2021-01-13 07:25 | NUR ---
REPORT GIVEN TO ALLEY RIVERA FOR CONTINUITY OF CARE. PT SITTING UP AAOX4. NO APPARENT S/S OF ACUTE DISTRESS. BREATHING EVEN AND UNLABORED. . BED IN LOW/LOCKED POSITION. CALL LIGHT WITHIN REACH. ALL NEEDS MET AT THIS TIME.
[2021-01-13 07:58] LABS: POTASSIUM 6.1 mmol/L (3.5-5.1)
[2021-01-13 07:59] LABS: CREATININE 4.6 mg/dL (0.6-1.3)
[2021-01-13 08:00] VITALS: BP 98/36
--- NOTE | 2021-01-13 08:00 | NUR ---
RECEIVED CRITICAL VALUES FROM LAB VIA ABOY. BUN 97, CR 4.6, K 6.1, NA 118. REPORTED TO DR. JACQUES. AWAITING ORDERS.
[2021-01-13] MEDS ORDERED: SODIUM ZIRCONIUM CYCLOSILICATE 10 GM POWD.PACK PO SCH (08:35)
[2021-01-13] MEDS: PANTOPRAZOLE 40 MG TABEC PO SCH (08:37)
[2021-01-13] MEDS ORDERED: SODIUM ZIRCONIUM CYCLOSILICATE 10 GM POWD.PACK PO ONE (09:15)
--- NOTE | 2021-01-13 09:29 | NUR ---
NEW ORDER RECEIVED. SPOKE TO DR MEZA, NOTIFIED OF NEW ORDERS. PT STABLE. EDUCATED ON MEDICATION GIVEN. PT VERBALIZED UNDERSTANDING. CALL LIGHT IN REACH. ALL SAFETY MEASURES IN PLACE.
--- NOTE | 2021-01-13 09:48 | NUR ---
SPOKE TO DR MEZA AND PT. FAMILY AT BEDSIDE. ORDER RECEIVED FOR CONSULT WITH DR BRYANT TO PLACE DIALYSIS PORT AND BEGIN DIALYSIS 01/14/21. PT STABLE. CALL LIGHT IN REACH. ALL SAFETY MEASURES IN PLACE. BREAKFAST AT BEDSIDE.
[2021-01-13 12:00] VITALS: BP 111/29
--- NOTE | 2021-01-13 12:28 | NUR ---
SPOKE TO PHARMACY FOR PT MEDICATION. PHARMACY TO BRING SUB Q MEDICATION FOR ADMINISTRATION. PT RESTING IN BED. LUNCH AT BEDSIDE. PT REPOSITIONED. CALL LIGHT IN REACH. ALL SAFETY MEASURES IN PLACE.
--- NOTE | 2021-01-13 13:46 | NUR ---
PT SIGNED CONSENT FORM FOR DIALYSIS CATHETER PLACEMENT. DR BRYANT PRESENT TO PERFORM PLACEMENT. PT TOLERATED WELL. NO S/S OF DISTRESS. CALL LIGHT IN REACH. ALL SAFETY MEASURES IN PLACE.
--- NOTE | 2021-01-13 14:51 | NUR ---
DIALYSIS NURSE VINCENZO AT BEDSIDE. PT CONSENTED AND SIGNED FOR DIALYSIS. NO S/S OF DISTRESS. CALL LIGHT IN REACH. ALL SAFETY MEASURES IN PLACE.
[2021-01-13] MEDS ORDERED: ALBUMIN HUMAN 25% 100 ML IV SCH (15:30)
[2021-01-13 16:00] VITALS: BP 75/56
--- NOTE | 2021-01-13 16:38 | NUR ---
SPOKE TO PT DAUGHTER ERIC AT [phone]. UPDATED ERIC ON DIALYSIS CATHETER PLACEMENT AND PROCEDURE. ERIC WOULD LIKE MORE UPDATES FROM ATTENDING MD.
--- NOTE | 2021-01-13 17:32 | NUR ---
SPOKE TO DR VIEYRA. CHANGE IN ORDERS ENTERED. DC ROCEPHIN AND BEGIN ZOSYN AT 2100. DIALYSIS COMPLETE, 0 OUTPUT. PT TOLERATED WELL. NO S/S OF DISTRESS. CALL LIGHT IN REACH. ALL SAFETY MEASURES IN PLACE.
--- NOTE | 2021-01-13 19:25 | NUR ---
RECEIVED BEDSIDE REPORT FROM AM NURSE. PATIENT IS RESTING. NO S/S OF RESPIRATORY DISTRESS. RESPIRATION EVEN UNLABORED. SON AT BEDSIDE. NO COMPLAINTS OF PAIN. IV LASIX DRIP RUNNING AT 10 ML/HR ON THE [place] PICC LINE. [facility] ACCESS DRESSING CLEAN AND DRY. CRUMP CATHETER IN PLACE DRAINING RONNI COLORED URINE. ALL SAFETY PRECAUTIONS ARE IN PLACE. CALL LIGHT WITHIN REACH. WILL CONTINUE TO MONITOR.
[2021-01-13 20:00] VITALS: BP 97/44
--- NOTE | 2021-01-13 20:02 | NUR ---
ENDORSED PT TO DINING SERVICE WORKER NURSE FOR CONTINUITY OF CARE. PT STABLE. BREATHING SYMMETRICAL. NO S/S OF DISTRESS. CALL LIGHT IN REACH. ALL SAFETY MEASURES IN PLACE. FAMILY AT BEDSIDE. IV FLUIDS RUNNING PER MD ORDER.
[2021-01-13] MEDS ORDERED: PIPERACILLIN/TAZOBACTAM 3.375 GM in DEXTROSE 5% 50 ML IV SCH (21:00)
[2021-01-13] MEDS: ONDANSETRON 4 MG/2 ML VIAL IM/IVP PRN (21:14)
--- NOTE | 2021-01-13 21:17 | NUR ---
PATIENT WITH N/V PRN ZOFRAN GIVEN. NURSE SALVADOR MADE AWARE. HOB UP. FAMILY AT BEDSIDE. CALL LIGHT IS WITHIN REACH.
[2021-01-13] MEDS: PIPERACILLIN/TAZOBACTAM 2.25 GM in DEXTROSE 5% 50 ML IV SCH (21:42)
--- NOTE | 2021-01-13 21:42 | NUR ---
ZOSYN IVPB ADMINISTERED ORDERED.
--- NOTE | 2021-01-13 21:46 | NUR ---
SANDOSTATIN GIVEN PER MD ORDERED.
--- NOTE | 2021-01-13 23:05 | NUR ---
PATIENT HAS LOW BP 97/44 WITH ONGOING LASIX DRIP. CALLED DR. LAMAS WITH ORDER TO CALL CRAFT ARTIST. PAGED DR. MEZA AT AROUND [id number] AWAITING FOR CALL BACK.
--- NOTE | 2021-01-13 23:50 | NUR ---
PLACED A CALL TO DR. LAMAS AGAIN CAUSE DR. DANIELLE MEZA HAS NO CALL BACK. ORDERED LASIX IP TO HOLD UNTIL 0400.
[2021-01-14] VITALS: BP 94/46
--- NOTE | 2021-01-14 00:51 | NUR ---
ROUNDING PATIENT. PT IS ASLEEP. BREATHING REGULAR NON LABORED. CALL LIGHT WITHIN REACH. SAFETY MEASURES IN PLACE.
[2021-01-14 04:00] VITALS: BP 94/52
[2021-01-14] MEDS: PIPERACILLIN/TAZOBACTAM 2.25 GM in DEXTROSE 5% 50 ML IV SCH ×3 (05:25→20:58)
[2021-01-14] MEDS: OCTREOTIDE ACETATE 100 MCG/ML VIAL SUBQ SCH ×3 (05:29→20:58)
[2021-01-14] MEDS: MIDODRINE 5 MG TAB PO SCH ×3 (06:28→18:41)
[2021-01-14] MEDS: FUROSEMIDE 100 MG in DEXTROSE 5% 90 ML IV SCH (06:30)
[2021-01-14 06:32] LABS: ANION GAP 16.6 (8-16); CARBON DIOXIDE 22.2 mmol/L (21-32); POTASSIUM 4.8 mmol/L (3.5-5.1)
[2021-01-14 06:48] LABS: BASOPHILS % (AUTO) 0.1 % (0.0-2.0); EOSINOPHILS % (AUTO) 0.4 % (0.0-4.0); HEMATOCRIT 29.2 % (36-52); HEMOGLOBIN 9.8 g/dL (12.0-18.0); LYMPHOCYTES # (AUTO) 0.2 K/uL (2.0-11.5); LYMPHOCYTES % (AUTO) 1.6 % (20.5-51.1); MEAN CORPUSCULAR HEMOGLOBIN 29 pg (27-31); MEAN CORPUSCULAR HGB CONC 34 g/dL (33-37); MEAN CORPUSCULAR VOLUME 86.6 fL (80-94); MONOCYTES # (AUTO) 1.1 K/uL (0.8-1.0); MONOCYTES % (AUTO) 9.6 % (1.7-9.3); NEUTROPHILS # (AUTO) 10.2 K/uL (1.8-7.7); NEUTROPHILS % (AUTO) 88.3 % (42.2-75.2); RED BLOOD CELL COUNT(AUTO) 3.38 MIL/uL (4.20-6.10); RED CELL DISTRIBUTION WIDTH 16.8 % (11.6-13.7); WHITE BLOOD COUNT (AUTO) 11.6 K/uL (4.8-10.8)
--- NOTE | 2021-01-14 07:12 | NUR ---
RECEIVED REPORT FROM SET ILLUSTRATOR NURSE. BREATHING SYMMETRICAL. NO S/S OF DISTRESS. IV RUNNING PER MD ORDERS. CALL LIGHT IN REACH. ALL SAFETY MEASURES ARE IN PLACE.
--- NOTE | 2021-01-14 07:12 | NUR ---
ENDORSED TO AM NURSE FOR CONTINUITY OF CARE. PATIENT IN STABLE CONDITION.
[2021-01-14 07:45] LABS: PLATELET COUNT (AUTO) 50 K/uL (140-450)
[2021-01-14 08:00] VITALS: BP 107/55
[2021-01-14] MEDS: PANTOPRAZOLE 40 MG TABEC PO SCH (08:42)
--- NOTE | 2021-01-14 09:43 | NUR ---
PT RESTING IN BED. FAMILY AT BEDSIDE. BREATHING SYMMETRICAL. NO S/S OF DISTRESS. IV RUNNING PER MD ORDERS. CALL LIGHT IN REACH. ALL SAFETY MEASURES ARE IN PLACE.
--- NOTE | 2021-01-14 11:48 | NUR ---
SPOKE TO MD. PT DIET CHANGED TO RENAL STARTING AT LUNCH. MD ORDERED A DC OF LASIX DRIP. PT STABLE. BREATHING SYMMETRICAL. NO S/S OF DISTRESS. CALL LIGHT IN REACH. ALL SAFETY MEASURES ARE IN PLACE. FAMILY AT BEDSIDE. IV DISCONNECTED.
[2021-01-14 12:00] VITALS: BP 113/66
--- NOTE | 2021-01-14 13:30 | NUR ---
01/14/21 RD FOLLOW UP COMPLETED PLEASE REFER TO NUTRITION ASSESSMENT UNDER CARE ACTIVITY FOR ESTIMATED NUTRITIONAL NEEDS. 1.RECOMMENDED RENAL DIET 2.ENCOURAGE INCREASED INTAKE >75% 3.RECOMMEND NEPRO 1X DAY -THIS WILL PROVIDE ADDITIONAL 425 KCALS AND 19GM PROTEIN 4.PROVIDED NUTIRITON EDUCATION ON RENAL DIET 5.RD TO FOLLOW-UP IN 3-5 DAYS PATIENT IS MODERATE RISK. REVIEWED BY MARIELLE COLIN RD
--- NOTE | 2021-01-14 14:00 | NUR ---
DIALYSIS NURSE AT BEDSIDE. PT TOLERATING WELL. NO S/S OF DISTRESS. CALL LIGHT IN REACH. ALL SAFETY MEASURES IN PLACE.
[2021-01-14] MEDS ORDERED: ALBUMIN HUMAN 25% 0 ML IV ONE (14:26)
[2021-01-14] MEDS ORDERED: ALBUMIN HUMAN 25% 100 ML IV ONE (14:28)
[2021-01-14] MEDS ORDERED: ALBUMIN HUMAN 25% 100 ML IV SCH (14:30)
[2021-01-14] MEDS ORDERED: ALBUMIN HUMAN 25% 50 ML IV SCH (14:30)
--- NOTE | 2021-01-14 14:49 | NUR ---
ALBUMIN ORDERED DURING DIALYSIS. PT BP DROPPED. NO S/S OF DISTRESS. BREATHING SYMMETRICAL. CALL LIGHT IN REACH. ALL SAFETY MEASURES IN PLACE. DIALYSIS NURSE AT BEDSIDE.
[2021-01-14 16:00] VITALS: BP 97/49
--- NOTE | 2021-01-14 17:00 | NUR ---
PT RESTING IN BED RECEIVING DIALYSIS TREATMENT. DIALYSIS NURSE AT BEDSIDE. BREATHING SYMMETRICAL. NO S/S OF DISTRESS. CALL LIGHT IN REACH. ALL SAFETY MEASURES ARE IN PLACE.
--- NOTE | 2021-01-14 19:14 | NUR ---
ENDORSED PT TO PICKING TECH NURSE FOR CONTINUITY OF CARE. PT STABLE. BREATHING SYMMETRICAL. NO S/S OF DISTRESS. CALL LIGHT IN REACH. ALL SAFETY MEASURES IN PLACE. IV PATENT.
--- NOTE | 2021-01-14 19:15 | NUR ---
RECEIVED REPORT FROM AM NURSE. PATIENT IS RESTING COMFORTABLY. NO DISTRESS NOTED. RESPIRATION EVEN UNLABORED. FAMILY MEMBER AT BEDSIDE. NO COMPLAINTS OF PAIN. ALL SAFETY MEASURES ARE IN PLACE. CALL LIGHT WITHIN REACH.
[2021-01-14 20:00] VITALS: BP 120/59
--- NOTE | 2021-01-14 20:58 | NUR ---
ADMINISTERED DUE SCHEDULED MEDS ORDERED.
[2021-01-15] VITALS: BP 110/58
--- NOTE | 2021-01-15 03:54 | NUR ---
ROUNDING PATIENT, PT IS SLEEPING. NO DISTRESS NOTED. CALL LIGHT WITHIN REACH.
[2021-01-15 04:00] VITALS: BP 87/52
[2021-01-15] MEDS: PIPERACILLIN/TAZOBACTAM 2.25 GM in DEXTROSE 5% 50 ML IV SCH ×3 (05:11→20:39)
[2021-01-15] MEDS: OCTREOTIDE ACETATE 100 MCG/ML VIAL SUBQ SCH ×3 (05:11→20:39)
--- NOTE | 2021-01-15 05:11 | NUR ---
ZOSYN GIVEN SCHEDULED DUE
[2021-01-15] MEDS: MIDODRINE 5 MG TAB PO SCH ×3 (06:34→18:18)
[2021-01-15 06:35] LABS: BASOPHILS % (AUTO) 0.1 % (0.0-2.0); EOSINOPHILS # (AUTO) 0.1 K/uL (0-0.4); EOSINOPHILS % (AUTO) 0.8 % (0.0-4.0); HEMATOCRIT 29.8 % (36-52); HEMOGLOBIN 9.9 g/dL (12.0-18.0); LYMPHOCYTES # (AUTO) 0.2 K/uL (2.0-11.5); LYMPHOCYTES % (AUTO) 1.5 % (20.5-51.1); MEAN CORPUSCULAR HEMOGLOBIN 29 pg (27-31); MEAN CORPUSCULAR HGB CONC 33 g/dL (33-37); MEAN CORPUSCULAR VOLUME 87.1 fL (80-94); MONOCYTES # (AUTO) 0.9 K/uL (0.8-1.0); MONOCYTES % (AUTO) 8.3 % (1.7-9.3); NEUTROPHILS # (AUTO) 10.1 K/uL (1.8-7.7); NEUTROPHILS % (AUTO) 89.3 % (42.2-75.2); PLATELET COUNT (AUTO) 33 K/uL (140-450); RED BLOOD CELL COUNT(AUTO) 3.41 MIL/uL (4.20-6.10); RED CELL DISTRIBUTION WIDTH 17.6 % (11.6-13.7); WHITE BLOOD COUNT (AUTO) 11.3 K/uL (4.8-10.8)
[2021-01-15 06:39] LABS: ANION GAP 15.1 (8-16); CARBON DIOXIDE 24.8 mmol/L (21-32); CREATININE 3.4 mg/dL (0.6-1.3); POTASSIUM 3.9 mmol/L (3.5-5.1)
[2021-01-15 06:40] LABS: MAGNESIUM 2.3 mg/dL (1.8-2.4); PHOSPHORUS 3.6 mg/dL (2.5-4.9)
--- NOTE | 2021-01-15 07:10 | NUR ---
PATIENT AWAKE AND ALERT. NO ACUTE DISTRESS NOTED. CALL LIGHT WITHIN REACH. ALL SAFETY MEASURES IN PLACE. WILL CONTINUE TO MONITOR.
--- NOTE | 2021-01-15 07:20 | NUR ---
ENDORSED TO AM NURSE FOR CONTINUITY OF CARE. PATIENT IS IN STABLE CONDITION.
[2021-01-15 08:00] VITALS: BP 97/51
[2021-01-15] MEDS: PANTOPRAZOLE 40 MG TABEC PO SCH (08:29)
[2021-01-15] MEDS ORDERED: PRO5 PO (08:41)
--- NOTE | 2021-01-15 09:10 | NUR ---
PATIENT AWAKE AND ALERT. NO ACUTE DISTRESS NOTED. ALL SCHEDULED MEDICATIONS GIVEN. SON AT BEDSIDE. CALL LIGHT WITHIN REACH. ALL SAFETY MEASURES IN PLACE. WILL CONTINUE TO MONITOR.
[2021-01-15 09:56] LABS: PROTHROMBIN TIME 16.7 secs (10.8-13.4)
--- NOTE | 2021-01-15 11:20 | NUR ---
PATIENT SLEEPING. BREATHING EVEN AND UNLABORED. NO ACUTE DIGRESS NOTED. CALL LIGHT WITHIN REACH. SAFETY MEASURES IN PLACE. WILL CONTINUE TO MONITOR.
[2021-01-15 12:00] VITALS: BP 105/59
[2021-01-15 12:07] LABS: HEPATITIS A ANTIBODY IGM Negative (Negative); HEPATITIS B CORE AB TOTAL Negative (Negative); HEPATITIS B SURFACE ANTIBODY Non Reactive (.); HEPATITIS B SURFACE ANTIGEN Negative (Negative)
--- NOTE | 2021-01-15 12:11 | NUR ---
CALLED VINCENZO FROM [facility], NOTIFIED REGARDING THE HD ORDERED FOR TOMORROW.
--- NOTE | 2021-01-15 13:10 | NUR ---
PATIENT AWAKE AND ALERT. NO ACUTE DISTRESS NOTED. CALL LIGHT WITHIN REACH. SAFETY MEASURES IN PLACE. WILL CONTINUE TO MONITOR.
--- NOTE | 2021-01-15 15:00 | NUR ---
PATIENT SLEEPING. BREATHING EVEN AND UNLABORED. NO ACUTE DISTRESS NOTED. CALL LIGHT WITHIN REACH. SAFETY MEASURES IN PLACE. WILL CONTINUE TO MONITOR.
[2021-01-15 16:00] VITALS: BP 103/59
--- NOTE | 2021-01-15 16:07 | NUR ---
PATIENT PARACENTESIS TO BE DONE TOMORROW MORNING. PLATELETS WILL BE AVAILABLE TO BE ADMINISTERED DURING PROCEDURE PER BLOOD BANK.
--- NOTE | 2021-01-15 18:10 | NUR ---
PATIENT SLEEPING. BREATHING EVEN AND UNLABORED. NO ACUTE DISTRESS NOTED. CALL LIGHT WITHIN REACH. ALL SAFETY MEASURES IN PLACE. WILL CONTINUE TO MONITOR.
[2021-01-15] MEDS: ACETAMINOPHEN 325 MG TAB PO PRN (18:27)
--- NOTE | 2021-01-15 19:51 | NUR ---
ENDORSED PT TO ASSISTANT PROFESSOR OF GERMAN NURSE FOR CONTINUITY OF CARE. PT STABLE. NO S/S OF DISTRESS. CALL LIGHT IN REACH. ALL SAFETY MEASURES IN PLACE.
[2021-01-15 20:00] VITALS: BP 94/51
--- NOTE | 2021-01-15 20:00 | NUR ---
RECEIVED REPORT FROM BHAVNA RN. PATIENT IS RESTING. NO S/S OF DISTRESS. BREATHING EVEN UNLABORED. ALL SAFETY MEASURES ARE IN PLACE. CRUMP CATHETER IN PLACE. CALL LIGHT WITHIN REACH. DAUGHTER AT BEDSIDE. WILL CONTINUE TO MONITOR.
--- NOTE | 2021-01-15 20:39 | NUR ---
ADMINISTERED SCHEDULED MEDS ORDERED. PATIENT IS AFEBRILE. NO SOB NOTED. ALL NEEDS MET. CALL LIGHT WITHIN REACH.
[2021-01-16] VITALS: BP 89/46
--- NOTE | 2021-01-16 00:23 | NUR ---
PATIENT IS SLEEPING. RESPIRATION EVEN UNLABORED. SKIN WARM AND DRY TO TOUCH. CALL LIGHT WITHIN REACH.
[2021-01-16 04:00] VITALS: BP 109/55
[2021-01-16] MEDS: PIPERACILLIN/TAZOBACTAM 2.25 GM in DEXTROSE 5% 50 ML IV SCH ×3 (04:16→21:46)
--- NOTE | 2021-01-16 04:16 | NUR ---
ZOSYN ADMINISTERED SCHEDULED PER MD ORDERED.
[2021-01-16] MEDS: OCTREOTIDE ACETATE 100 MCG/ML VIAL SUBQ SCH ×3 (04:30→21:46)
[2021-01-16] MEDS: MIDODRINE 5 MG TAB PO SCH ×3 (06:12→18:22)
[2021-01-16 06:52] LABS: LYMPHOCYTES # (AUTO) 0.2 K/uL (2.0-11.5); RED BLOOD CELL COUNT(AUTO) 3.46 MIL/uL (4.20-6.10)
[2021-01-16 06:53] LABS: ANION GAP 18.5 (8-16); CARBON DIOXIDE 22.6 mmol/L (21-32); POTASSIUM 4.1 mmol/L (3.5-5.1)
[2021-01-16 07:01] LABS: MAGNESIUM 2.3 mg/dL (1.8-2.4); PHOSPHORUS 4.6 mg/dL (2.5-4.9)
--- NOTE | 2021-01-16 07:05 | NUR ---
RECEIVED REPORT FROM COMPANY DOCTOR NURSE FOR CONTINUITY OF CARE. PATIENT SLEEPING. BREATHING EVEN AND UNLABORED. NO ACUTE DISTRESS NOTED. CALL LIGHT WITHIN REACH. SAFETY MEASURES IN PLACE. WILL CONTINUE TO MONITOR.
[2021-01-16 07:17] LABS: BASOPHILS % (AUTO) 0.2 % (0.0-2.0); EOSINOPHILS # (AUTO) 0.3 K/uL (0-0.4); EOSINOPHILS % (AUTO) 1.7 % (0.0-4.0); HEMATOCRIT 30.3 % (36-52); LYMPHOCYTES % (AUTO) 1.4 % (20.5-51.1); MEAN CORPUSCULAR HEMOGLOBIN 29 pg (27-31); MEAN CORPUSCULAR HGB CONC 33 g/dL (33-37); MEAN CORPUSCULAR VOLUME 87.4 fL (80-94); MONOCYTES # (AUTO) 1.1 K/uL (0.8-1.0); MONOCYTES % (AUTO) 6.9 % (1.7-9.3); NEUTROPHILS % (AUTO) 89.8 % (42.2-75.2); PLATELET COUNT (AUTO) 32 K/uL (140-450); RED CELL DISTRIBUTION WIDTH 17.7 % (11.6-13.7)
--- NOTE | 2021-01-16 07:21 | NUR ---
ENDORSED PATIENT TO AM NURSE FOR CONTINUITY OF CARE. PT. IS STABLE.
[2021-01-16 08:00] VITALS: BP 77/43
--- NOTE | 2021-01-16 08:25 | NUR ---
DAUGHTER AT BEDSIDE. DAUGHTER REQUESTED TO SPEAK TO DR MEZA IN REGARDS TO DISCONTINUING HD.
[2021-01-16 08:38] LABS: WHITE BLOOD COUNT (AUTO) 15.5 K/uL (4.8-10.8)
[2021-01-16 08:46] LABS: CREATININE 4.3 mg/dL (0.6-1.3)
[2021-01-16] MEDS: LANSOPRAZOLE 30 MG CAPDR PO SCH (09:15)
--- NOTE | 2021-01-16 09:15 | NUR ---
PATIENT AWAKE AND ALERT. NO ACUTE DISTRESS NOTED. SCHEDULED MEDICATION GIVEN. PATIENT HAVE DIFFICULTY SWALLOWING. DAUGHTER AT BEDSIDE. CALL LIGHT WITHIN REACH. ALL SAFETY MEASURES IN PLACE. WILL CONTINUES MONITOR.
--- NOTE | 2021-01-16 10:15 | NUR ---
ATTEMPTED TO SEE PATIENT FOR PHYSICAL THERAPY TREATMENT HOWEVER PATIENT BEGINNING PARACENTESIS PROCEDURE. WILL FOLLOW UP TOMORROW IF APPROPRIATE; RN AWARE.
--- NOTE | 2021-01-16 10:15 | NUR ---
PATIENT PLATELETS STARTED. VS BP 78/48, TEMP 97.7, PULSE 78, RR 16, O2 97%.
--- NOTE | 2021-01-16 10:21 | NUR ---
PATIENT TIME OUT CALLED OUT FOR PATIENT HAVING PARACENTESIS WITH PLATELETS RUNNING. DR. LONDONO AT BEDSIDE PREFORMING PROCEDURES.
--- NOTE | 2021-01-16 10:58 | NUR ---
PER DR LONDONO, REQUESTED TO GIVE THE PATIENT 25% OF ALBUMIN FOR PATIENT.
[2021-01-16 12:00] VITALS: BP 79/49
--- NOTE | 2021-01-16 12:30 | NUR ---
PATIENT AWAKE AND ALERT. NO ACUTE DISTRESS NOTED. PER URMILA FROM RADIOLOGY PATIENT HAD 8.75L TAKEN OUT DURING PARACENTESIS. BROTHER AT BEDSIDE. CALL LIGHT WITHIN REACH. ALL SAFETY MEASURES IN PLACE. WILL CONTINUE TO MONITOR.
[2021-01-16] MEDS: ACETAMINOPHEN 325 MG TAB PO PRN (12:50)
[2021-01-16] MEDS: ALBUMIN HUMAN 25% 100 ML IV SCH ×2 (12:51→13:18)
--- NOTE | 2021-01-16 14:15 | NUR ---
PATIENT SLEEPING. NO ACUTE DISTRESS NOTED. PATIENT BREATHING EVEN AND UNLABORED. PATIENT ON ROOM AIR. CALL LIGHT WITHIN REACH. ALL SAFETY MEASURES IN PLACE. WILL CONTINUE TO MONITOR.
[2021-01-16 16:00] VITALS: BP 81/40
--- NOTE | 2021-01-16 16:10 | NUR ---
PATIENT AWAKE AND ALERT. NO ACUTE DISTRESS NOTED. PATIENT ON ROOM AIR. CALL LIGHT WITHIN REACH. ALL SAFETY MEASURES IN PLACE. WILL CONTINUE TO MONITOR.
--- NOTE | 2021-01-16 18:16 | NUR ---
PATIENT SLEEPING. NO ACUTE DISTRESS NOTED. BREATHING EVEN AND UNLABORED. PATIENT ON ROOM AIR. CALL LIGHT WITHIN REACH. ALL SAFETY MEASURES IN PLACE. WILL CONTINUE TO MONITOR.
--- NOTE | 2021-01-16 19:10 | NUR ---
ENDORSED TO PIN MAKER NURSE FOR CONTINUITY OF CARE. PATIENT SLEEPING. BREATHING EVEN AND UNLABORED. CALL LIGHT WITHIN REACH. ALL SAFETY MEASURES IN PLACE.
--- NOTE | 2021-01-16 19:11 | NUR ---
RECEIVED REPORT FROM AM NURSE.PATIENT IS RESTING. NO S/S OF DISTRESS NOTED. BREATHING REGULAR UNLABORED.ALL SAFETY MEASURES ARE IN PLACE. CALL LIGHT WITHIN REACH. DENIES PAIN . WILL CONTINUE TO MONITOR.
[2021-01-16 20:00] VITALS: BP 90/39
--- NOTE | 2021-01-16 21:46 | NUR ---
ADMINISTERED SCHEDULED MEDS PER MD ORDERED.
[2021-01-17] VITALS: BP 72/34
[2021-01-17 04:00] VITALS: BP 70/38
[2021-01-17] MEDS: PIPERACILLIN/TAZOBACTAM 2.25 GM in DEXTROSE 5% 50 ML IV SCH ×2 (04:36→12:38)
[2021-01-17] MEDS: OCTREOTIDE ACETATE 100 MCG/ML VIAL SUBQ SCH ×2 (04:43→13:28)
[2021-01-17 06:08] LABS: HEPATITIS A ANTIBODY IGM Negative (Negative); HEPATITIS B CORE AB TOTAL Negative (Negative); HEPATITIS B SURFACE ANTIBODY Reactive (.); HEPATITIS B SURFACE ANTIGEN Negative (Negative)
[2021-01-17] MEDS: MIDODRINE 5 MG TAB PO SCH ×2 (06:21→13:28)
[2021-01-17 06:48] LABS: ANION GAP 17.1 (8-16); CARBON DIOXIDE 23.2 mmol/L (21-32); POTASSIUM 4.3 mmol/L (3.5-5.1)
[2021-01-17 06:51] LABS: MAGNESIUM 2.5 mg/dL (1.8-2.4); PHOSPHORUS 6.3 mg/dL (2.5-4.9)
--- NOTE | 2021-01-17 07:15 | NUR ---
ENDORSED PATIENT TO AM NURSE FOR CONTINUITY OF CARE. PATIENT IS STABLE
[2021-01-17 07:16] LABS: BASOPHILS % (AUTO) 0.1 % (0.0-2.0); EOSINOPHILS # (AUTO) 0.3 K/uL (0-0.4); EOSINOPHILS % (AUTO) 2.1 % (0.0-4.0); HEMATOCRIT 25.6 % (36-52); HEMOGLOBIN 8.4 g/dL (12.0-18.0); LYMPHOCYTES # (AUTO) 0.2 K/uL (2.0-11.5); LYMPHOCYTES % (AUTO) 1.7 % (20.5-51.1); MEAN CORPUSCULAR HEMOGLOBIN 29 pg (27-31); MEAN CORPUSCULAR HGB CONC 33 g/dL (33-37); MEAN CORPUSCULAR VOLUME 87.2 fL (80-94); MONOCYTES # (AUTO) 0.9 K/uL (0.8-1.0); MONOCYTES % (AUTO) 6.8 % (1.7-9.3); NEUTROPHILS # (AUTO) 11.5 K/uL (1.8-7.7); NEUTROPHILS % (AUTO) 89.3 % (42.2-75.2); RED BLOOD CELL COUNT(AUTO) 2.93 MIL/uL (4.20-6.10); RED CELL DISTRIBUTION WIDTH 17.7 % (11.6-13.7); WHITE BLOOD COUNT (AUTO) 12.9 K/uL (4.8-10.8)
--- NOTE | 2021-01-17 07:20 | NUR ---
RECEIVED REPORT FROM DIRECTOR PRISON NURSE FOR CONTINUITY OF CARE. NO S/S OF DISTRESS. DENIES PAIN AT THIS TIME. CALL LIGHT IN REACH. ALL SAFETY MEASURES IN PLACE. PARACENTESIS CONTAINERS AT BEDSIDE FROM PROCEDURE ON 01/16
[2021-01-17 08:00] VITALS: BP 77/41
[2021-01-17 08:48] LABS: CREATININE 5.2 mg/dL (0.6-1.3); PLATELET COUNT (AUTO) 35 K/uL (140-450)
[2021-01-17] MEDS: LANSOPRAZOLE 30 MG CAPDR PO SCH (08:58)
--- NOTE | 2021-01-17 09:33 | NUR ---
SPOKE TO DIMAS FROM LAB. CRITICAL VALUES REPORTED BUN 83, CR 5.2, CA 7.9
--- NOTE | 2021-01-17 11:26 | NUR ---
PT AND FAMILY INFORMED OF DC PLAN. PT VERBALIZED UNDERSTANDING. PT WILL BE SENT TO [facility] FOR HOSPICE CARE. NO S/S OF DISTRESS. CALL LIGHT IN REACH. ALL SAFETY MEASURES IN PLACE.
[2021-01-17 12:00] VITALS: BP 74/43
--- NOTE | 2021-01-17 14:35 | NUR ---
SPOKE TO [facility] FOR HOSPICE CARE AT [facility]. BED 15C. [place] TRANSPORTATION TO ORE CHARGER BETWEEN [phone] TODAY. FAMILY NOTIFIED Addendum: 01/17/21 at 1720 by Yobany Sotelo RN RN REPORT PROVIDED FOR CONTINUITY OF CARE
--- NOTE | 2021-01-17 16:15 | NUR ---
TRANSPORTATION ARRIVED FOR [employer]. FAMILY AT BEDSIDE. PAPERWORK PROVIDED TO TRANSPORT COMPANY. [facility] PT STABLE. PT REPORTED PAIN 05/22. PT MEDICATED FOR PAIN PRIOR TO TRANSPORT PER MD ORDERS. PT VERBALIZED UNDERSTANDING OF EDUCATION ON MEDICATION ADMINISTERED. ALL SAFETY MEASURES IN PLACE
== END 2021-01-17 16:45 | DRG 314 ==
LOC: MED 00:31 → MMU 06:18 → MIC 09:02 → MTU 01-11 06:15
PROVIDERS: ADMIT Family Medicine; ATTEND Family Medicine
PROC: 0W9G3ZZ Drainage of Peritoneal Cavity, Percutaneous Approach (ICD-10-PCS; principal; 2021-01-09)
PROC: 02H633Z Insertion of Infusion Device into Right Atrium, Percutaneous Approach (ICD-10-PCS; 2021-01-13)
PROC: B548ZZA Ultrasonography of Superior Vena Cava, Guidance (ICD-10-PCS; 2021-01-13)
PROC: 5A1D70Z Performance of Urinary Filtration, Intermittent, Less than 6 Hours Per Day (ICD-10-PCS; 2021-01-13)
PROC: 5A1D70Z Performance of Urinary Filtration, Intermittent, Less than 6 Hours Per Day (ICD-10-PCS; 2021-01-14)
PROC: 5A1D70Z Performance of Urinary Filtration, Intermittent, Less than 6 Hours Per Day (ICD-10-PCS; 2021-01-15)
PROC: 0W9G3ZZ Drainage of Peritoneal Cavity, Percutaneous Approach (ICD-10-PCS; 2021-01-16)
DX: I95.9 Hypotension, unspecified (principal); K76.7 Hepatorenal syndrome; E43 Unspecified severe protein-calorie malnutrition; G93.41 Metabolic encephalopathy; N17.0 Acute kidney failure with tubular necrosis; J18.9 Pneumonia, unspecified organism; K65.2 Spontaneous bacterial peritonitis; E87.1 Hypo-osmolality and hyponatremia; K76.6 Portal hypertension; E87.2 Acidosis; K70.31 Alcoholic cirrhosis of liver with ascites; F10.10 Alcohol abuse, uncomplicated; Y90.9 Presence of alcohol in blood, level not specified; E86.1 Hypovolemia; E87.70 Fluid overload, unspecified; D64.9 Anemia, unspecified; D69.6 Thrombocytopenia, unspecified; Z20.822 Contact with and (suspected) exposure to COVID-19; N28.1 Cyst of kidney, acquired; I12.9 Hypertensive chronic kidney disease with stage 1 through stage 4 chronic kidney disease, or unspecified chronic kidney disease; N18.9 Chronic kidney disease, unspecified
CPT/HCPCS: 36415; 49083; 71045; 76705; 76770; 80048; 80053; 80305; 81001; 82150; 82436; 82570; 82945; 83036; 83605; 83690; 83735; 83880; 84100; 84157; 84300; 84436; 84439; 84443; 84479; 84484; 85025; 85610; 85730; 86704; 86706; 86708; 86709; 86803; 86886; 86900; 86901; 87040; 87070; 87081; 87086; 87205; 87340; 89051; 93005; 96365; 96367; 96375; 97110; 97112; 97163-GP; 97530; 99291; J0696; J1644; J1940; J2001; J2270; J2354; J2405; J2543; J3490; J7060; P9046; Q0092; U0003